=== PATIENT | female | born 1945 | race Caucasian/White ===

== ENCOUNTER 2020-06-14 13:50 | Observation (INO) | payer MEDICARE ==
--- NOTE | 2020-06-14 14:28 | ERPHSYRPT ---
- History of Present Illness Time Seen by Provider: 06/14/20 13:57 Source: patient Exam Limitations: no limitations Patient Subjective Stated Complaint: Pt states "I was told to come here from my Dr. Dr. Montes. She said my hemaglobin was low and I needed a transfusion." Triage Nursing Assessment: Pt presented alert and oriented X 3, skin pwd Pt ambulates with an upright steady gait, able to speak in clear full sentences. Pt in no apparent respiratory distress. pt has no complaints. Physician History: 74 years old female with history of hypertension, hyperlipidemia, diabetes mellitus, tobacco abuse, chronic kidney disease is sent in ER by primary care Dr. Frazier for low hemoglobin found on routine blood work last week. Patient hemoglobin last month was around 7.4-7.6. Patient denies any chest pain palp itations or shortness of breath. Denies any feeling of being fatigued worn out and tired all the time. She denies any epigastric discomfort, taking NSAIDs, any blood thinners but does state Plavix. She denies any dark stool, hematochezia or hematemesis. Denies any fever chills cough or recent being sick. Does not have any history of blood transfusions in the past Allergies/Adverse Reactions: Iodinated Contrast Media Adverse Reaction (Verified 02/13/15 20:43) morphine Adverse Reaction (Verified 02/13/15 20:43) diuretics Adverse Reaction (Uncoded 02/13/15 20:43) Home Medications: Aspirin 81 gm Chew [Baby Aspirin 81 mg Chew] 81 mg PO DAILY 02/13/15 [History] Cilostazol [Pletal] 100 mg PO BID 02/13/15 [History] Clopidogrel Bisulfate 75 mg [PLAVIX 75 MG Tablet] 75 mg PO DAILY 02/13/15 [History] Cyanocobalamin 100 Mcg [Vitamin B-12 100 Mcg] 100 mcg PO DAILY 02/13/15 [History] Felodipine 5 mg [Plendil ER 5 mg] 10 mg PO DAILY 02/13/15 [History] Lisinopril 20 mg [Zestril 20 MG] 40 mg PO DAILY 02/13/15 [History] Lorazepam 1 mg [Ativan 1 MG] 1 mg PO BID 02/13/15 [History] Metoprolol Tartrate 25 mg [Lopressor 25MG Tab] 25 mg PO BID 02/13/15 [History] [place]-3 Fatty Acids [Fish Oil] 300 mg PO DAILY 02/13/15 [History] Omeprazole 20 MG [Prilosec 20 mg] 20 mg PO DAILY 02/13/15 [History] Pravastatin Sodium 40 mg PO DAILY 02/13/15 [History] Vitamin B Complex [Super B Complex] 1 cap PO DAILY 02/13/15 [History] Hx Tetanus, Diphtheria Vaccination/Date Given: No Hx Influenza Vaccination/Date Given: Yes Hx Pneumococcal Vaccination/Date Given: No Immunizations Up to Date: Yes Travel Risk - International Travel Have you traveled outside of the country in past 3 weeks: No - Coronavirus Screening Are you exhibiting any of the following symptoms?: No Close contact with a COVID-19 positive Pt in past 14-21 Days: No - Review of Systems Constitutional: No Symptoms Eyes: No Symptoms Ears, Nose, & Throat: No Symptoms Respiratory: No Symptoms Cardiac: No Symptoms Abdominal/Gastrointestinal: No Symptoms Genitourinary Symptoms: No Symptoms Musculoskeletal: No Symptoms Skin: No Symptoms Neurological: No Symptoms Psychological: No Symptoms Endocrine: No Symptoms Hematologic/Lymphatic: No Symptoms Immunological/Allergic: No Symptoms - Past Medical History Pertinent Past Medical History: Yes Neurological History: No Pertinent History ENT History: No Pertinent History Cardiac History: Congestive Heart Failure, Coronary Artery Disease, High Cholesterol, Hypertension, Myocardial Infarction ([place]), Peripheral Vascular Disease, Other Respiratory History: No Pertinent History Endocrine Medical History: No Pertinent History Musculoskeletal History: No Pertinent History GI Medical History: No Pertinent History History: Other Psycho-Social History: Depression Female Reproductive Disorders: No Pertinent History Other Medical History: 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 - Social History Smoking Status: Current every day smoker How long have you smoked: years Exposure to second hand smoke: Yes Drug Use: none Patient Lives Alone: No - Female History Hx Now: No - Nursing Vital Signs Nursing Vital Signs: Initial Vital Signs Temperature 98.2 F 06/14/20 13:57 Pulse Rate 69 06/14/20 13:57 Respiratory Rate 20 06/14/20 13:57 Blood Pressure 150/63 06/14/20 13:57 O2 Sat by Pulse Oximetry 97 06/14/20 13:57 Pain Scale Pain Intensity 0 - Physical Exam General Appearance: no apparent distress, alert Eye Exam: PERRL/EOMI, other (Pale conjunctiva bilaterally) Ears, Nose, Throat Exam: normal ENT inspection, pharynx normal Neck Exam: normal inspection, non-tender, supple, full range of motion Respiratory Exam: normal breath sounds, lungs clear Cardiovascular Exam: regular rate/rhythm, normal heart sounds Gastrointestinal/Abdomen Exam: soft, normal bowel sounds, No tenderness Back Exam: normal inspection, normal range of motion Extremity Exam: normal inspection, normal range of motion, pelvis stable Neurologic Exam: alert, oriented x 3, cooperative, mental health social worker II-XII nml as tested Skin Exam: normal color SpO2 Interpretation: normal SpO2: 97 O2 Delivery: Room Air - Course Nursing assessment & vital signs reviewed: Yes Ordered Tests: Active Orders 24 hr Category Date Time Status IV Insertion STAT Care 06/14/20 14:23 Active CHEST 1 VIEW (PORTABLE) Stat Exams 06/14/20 14:23 Completed CBC W DIFF Stat Lab 06/14/20 15:25 Completed CMP Stat Lab 06/14/20 15:25 Completed FECAL OCCULT BLOOD - SCREENING Stat Lab 06/14/20 14:23 Ordered Manual Differential NC Stat Lab 06/14/20 15:25 Completed PROTIME WITH INR Stat Lab 06/14/20 15:25 Results PTT Stat Lab 06/14/20 15:25 Results UA W/RFX UR CULTURE Stat Lab 06/14/20 14:23 Ordered Transfer Order Routine Transfer 06/14/20 Ordered Medication Summary Generic Name Dose Route Start Last Admin Trade Name Freq PRN Reason Stop Dose Admin Pantoprazole Sodium 80 mg/ 500 mls @ 50 mls/hr 06/14/20 16:30 Sodium Chloride IV 07/14/20 16:29 .Q10H SANTANA Discontinued Medications Generic Name Dose Route Start Last Admin Trade Name Freq PRN Reason Stop Dose Admin Pantoprazole Sodium 40 mg 06/14/20 16:30 Protonix 40 Mg Iv IV 06/14/20 16:31 STAT ONE Lab/Rad Data: Laboratory Result Diagrams 06/14/20 15:25 06/14/20 15:25 Laboratory Results 06/14/20 06/14/20 06/14/20 Range/Units 15:25 15:25 15:25 WBC 6.9 (4.0-10.5) K/mm3 RBC 3.11 L (4.1-5.4) M/mm3 Hgb 7.0 L (12.0-16.0) gm/dl Hct 24.5 L (35-47) % MCV 78.8 (78-100) fl MCH 22.5 L (26-32) pg MCHC 28.6 L (32-36) g/dl RDW 20.3 H (11.5-14.0) % Plt Count 317 (150-450) K/mm3 MPV 8.3 (7.5-11.0) fl PT 11.9 (9.95-12.35) SECONDS INR 1.05 (0.8-3.0) APTT Pending Sodium 136 L (137-145) mmol/L Potassium 3.8 (3.5-5.1) mmol/L Chloride 106 (98-107) mmol/L Carbon Dioxide 26 (22-30) mmol/L Anion Gap 7.5 (5-15) MEQ/L BUN 16 (7-17) mg/dL Creatinine 1.14 H (0.52-1.04) mg/dL Estimated GFR 49.7 ML/MIN Glucose 164 H (74-106) mg/dL Calcium 8.5 (8.4-10.2) mg/dL Total Bilirubin 0.20 (0.2-1.3) mg/dL AST 15 (14-36) U/L ALT 8 (0-35) U/L Alkaline Phosphatase 66 (38-126) U/L Serum Total Protein 5.6 L (6.3-8.2) g/dL Albumin 3.1 L (3.5-5.0) g/dL - Progress Progress: unchanged Progress Note: 06/14/20 16:31 74 years old is evaluated for anemia which was found out on routine work-up at the primary care. Patient hemoglobin is gradually declining and today is 7.0. Patient denies any hematochezia/melena/hematemesis/vaginal bleeding/nosebleeding and no symptoms of anemia. Although patient looks pale. She is not in any distress. Not tachypneic or tachycardic. EKG did not show any acute ischemic changes. Chest x-ray negative. I have discussed with patient about risk and benefits of transfusion and she agrees with transfusion of 2 units. We will give 20 mg Lasix in between 2 units. She is also started on Protonix. Stool occult is pending. Patient needs further work-up for anemia to find out at source. Discussed with Dr. Recinos and patient is accepted for admission. Discussed with .: Nora Will see patient in: hospital (observation) Counseled pt/family regarding: lab results, diagnosis, need for follow-up, rad results - Departure Departure Disposition: Observation Clinical Impression: Acute anemia Condition: Stable Critical Care Time: No Referrals: BARBER FRAZIER [Primary Care Provider] -
--- NOTE | 2020-06-14 14:42 | XRAY ---
Indication: Anemia. Comparison: February 13, 2015. Portable chest remains clear again with tiny left midlung calcified granuloma. Heart is not enlarged for AP portable technique. Bony thorax intact again with mild osteopenia and degenerative changes. Impression: Continued nonacute chest with chronic features.
[2020-06-14 15:32] LABS: Hematocrit 24.5 % (35-47); Mean Cell Volume 78.8 fl (78-100); Mean Corpuscular Hemoglobin 22.5 pg (26-32); Mean Corpuscular Hgb Concent. 28.6 g/dl (32-36); Mean Platelet Volume 8.3 fl (7.5-11.0); Platelet Count 317 K/mm3 (150-450); Red Blood Count 3.11 M/mm3 (4.1-5.4); Red Cell Distribution Width 20.3 % (11.5-14.0); White Blood Count 6.9 K/mm3 (4.0-10.5)
[2020-06-14 15:39] LABS: INR 1.05 (0.8-3.0); PROTIME 11.9 SECONDS (9.95-12.35)
[2020-06-14 15:44] LABS: ALBUMIN 3.1 g/dL (3.5-5.0); ANION GAP 7.5 MEQ/L (5-15); BILIRUBIN,TOTAL 0.2 mg/dL (0.2-1.3); Calcium 8.5 mg/dL (8.4-10.2); Creatinine 1 1.14 mg/dL (0.52-1.04); EST GLOMERULAR FILTRATION RATE 49.7 ML/MIN; Potassium 3.8 mmol/L (3.5-5.1); Total Protein 5.6 g/dL (6.3-8.2)
[2020-06-14] MEDS ORDERED: PROTONIX 40 MG IV*** 80 MG in Sodium Chloride 0.9% 500 ML 500 ML IV SCH (16:30)
[2020-06-14] MEDS ORDERED: PROTONIX 40 MG IV IV ONE ×2 (16:30→19:26)
[2020-06-14 16:40] LABS: ABO TYPING B
[2020-06-14 16:41] LABS: Antibody Screen NEGATIVE (NEGATIVE); RH TYPING POSITIVE
[2020-06-14 16:43] LABS: CROSS MATCH (PRBC) COMPATIBLE (COMPATIBLE)
[2020-06-14 17:03] LABS: Basophil 1 % (0.0-1.0); Hypochromia 2+; Lymphocytes 14 % (24-44); Microcytosis 1+; Monocyte 8 % (0.0-12.0); Neutrophils 77 % (36.0-66.0); Platelet Estimate NORMAL (NORMAL); Polychromasia 1+; Total Cells Counted 100
[2020-06-14] MEDS ORDERED: Sodium Chloride 0.9% 1000 ML 1,000 ML ONE (17:12)
[2020-06-14 17:17] LABS: PTT 22.1 SECONDS (25.3-37.0)
[2020-06-14] MEDS ORDERED: Zofran 4 MG/2 ML VIAL IV PRN (19:55)
[2020-06-14] MEDS ORDERED: HUMALOG SQ PRN (19:55)
[2020-06-14] MEDS ORDERED: TYLENOL 325 MG PO PRN (19:55)
[2020-06-14 20:35] LABS: Appearance SLIGHTLY CLOUDY (CLEAR); Bilirubin NEGATIVE (NEGATIVE); Blood NEGATIVE Ery/ul (0-5); Epithelial Cells FEW /HPF (FEW); Glucose NEGATIVE (NEGATIVE); Ketones NEGATIVE (NEGATIVE); Leukocyte Esterase NEGATIVE (NEGATIVE); Mucus SLIGHT /HPF (NEGATIVE); Nitrite NEGATIVE (NEGATIVE); Protein,Urine Dip NEGATIVE (Negative); Specific Gravity 1.008 (1.005-1.025); Urobilinogen NEGATIVE mg/dL (0-1)
[2020-06-14] MEDS ORDERED: Ativan 1 MG PO SCH (22:00)
[2020-06-14] MEDS ORDERED: Lopressor 25MG Tab PO SCH (22:00)
[2020-06-15] MEDS ORDERED: PROTONIX 40 MG IV*** 80 MG in Sodium Chloride 0.9% 500 ML 500 ML IV SCH ×2
[2020-06-15] MEDS ORDERED: PROTONIX 40 MG IV IV ONE (01:33)
[2020-06-15] MEDS ORDERED: Sodium Chloride 0.9% 500 ML 500 ML IV ONE (01:33)
[2020-06-15 01:37] LABS: Hematocrit 31.9 % (35-47)
[2020-06-15 01:42] LABS: Hemoglobin 9.6 gm/dl (12.0-16.0)
[2020-06-15 04:56] VITALS: O2SAT 96
[2020-06-15 05:47] LABS: Absolute Neutrophil Ct (ANC) 5.22 (1.4-6.9); BASOPHIL % 0.7 % (0.0-0.4); Basophil (Absolute #) 0.05 (0-0.4); Eosinophil % 1.3 % (0.00-5.0); Hematocrit 31.4 % (35-47); Hemoglobin 9.4 gm/dl (12.0-16.0); Lymphocyte (Absolute #) 1.09 (1.0-4.6); Lymphocytes % 14.6 % (24.0-44.0); Mean Cell Volume 82.2 fl (78-100); Mean Corpuscular Hemoglobin 24.6 pg (26-32); Mean Corpuscular Hgb Concent. 29.9 g/dl (32-36); Mean Platelet Volume 8.9 fl (7.5-11.0); Monocytes % 13.4 % (0.0-12.0); Platelet Count 267 K/mm3 (150-450); Red Blood Count 3.82 M/mm3 (4.1-5.4); Red Cell Distribution Width 20.4 % (11.5-14.0); White Blood Count 7.5 K/mm3 (4.0-10.5)
[2020-06-15 06:11] LABS: ALBUMIN 3.4 g/dL (3.5-5.0); ALKALINE PHOSPHATASE 66 U/L (38-126); ANION GAP 7.6 MEQ/L (5-15); BLOOD UREA NITROGEN 14 mg/dL (7-17); CHLORIDE 108 mmol/L (98-107); Calcium 8.5 mg/dL (8.4-10.2); Carbon Dioxide 25 mmol/L (22-30); Creatinine 1 0.88 mg/dL (0.52-1.04); EST GLOMERULAR FILTRATION RATE > 60.0 ML/MIN; Glucose 109 mg/dL (74-106); Potassium 3.9 mmol/L (3.5-5.1); SGOT/AST 18 U/L (14-36); SGPT/ALT 8 U/L (0-35); SODIUM 137 mmol/L (137-145); Total Protein 6.2 g/dL (6.3-8.2)
[2020-06-15 07:37] VITALS: BP 172/81; PULSE 69
== END 2020-06-15 09:40 | disposition home or self-care (01) ==
LOC: ED 13:50 → MED SURG 19:46
PROVIDERS: ADMIT Family Medicine; ATTEND Family Medicine
DX: D64.9 Anemia, unspecified (principal); E78.5 Hyperlipidemia, unspecified; E11.22 Type 2 diabetes mellitus with diabetic chronic kidney disease; I12.9 Hypertensive chronic kidney disease with stage 1 through stage 4 chronic kidney disease, or unspecified chronic kidney disease; N18.9 Chronic kidney disease, unspecified; Z79.899 Other long term (current) drug therapy; Z79.01 Long term (current) use of anticoagulants
CPT/HCPCS: 36000; 36410; 36415; 36430; 71045; 76942; 80053; 81001; 82947; 85014; 85018; 85025; 85610; 85730; 86850; 86900; 86901; 86922; 93268; 94760; 96374; 99285; G0378; P9016; 99100; A9270-GY

== ENCOUNTER 2020-09-11 08:34 | Day surgery (SDC) | payer MEDICARE ==
[2020-09-11] MEDS ORDERED: Lactated Ringers 1,000 ML IV ONE (08:46)
--- NOTE | 2020-09-11 08:59 | HP ---
DATE OF SURGERY: 09/11/2020 HISTORY OF PRESENT ILLNESS: The patient is a 75 year-old who had anemia recently and has prior history of right colectomy in the past. No bloody stools. No pain. No change in bowel movements. Family history negative for colon cancer or stomach cancer. With anemia the patient is in need for upper and lower endoscopy to rule out upper/lower GI source. PAST MEDICAL HISTORY: Breast cancer, hypertension, congestive heart failure in the past and some diabetes. PAST SURGICAL HISTORY: Mastectomy in the past. 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 MEDICATIONS: Amlodipine, Banophen, calcium, cilostazol, Clopidogrel, felodipine, glimepiride, lisinopril, lorazepam, metoprolol. She had been on prednisone in the past and Simvastatin. ALLERGIES: MORPHINE. IODINATED CONTRAST. FAMILY HISTORY: As noted above. Negative for colon cancer. SOCIAL HISTORY: No smoking or alcohol abuse. REVIEW OF SYSTEMS: Fourteen systems reviewed. No chest pain or palpitations. Other systems negative or noncontributory as above and per preadmission questionnaire. PHYSICAL EXAMINATION: GENERAL: No acute distress. HEENT: Sclerae nonicteric. NECK: No JVD. CHEST: Equal excursion, nonlabored breathing. CVS: Regular rate and rhythm. ABDOMEN: Soft. No peritoneal signs. EXTREMITIES: No significant edema. No cyanosis. NEURO: Alert, oriented, moving extremities symmetrically. RECTAL: Deferred timed to endoscopy exam. PSYCH: Appropriate mood and affect. IMPRESSION: Anemia of unclear etiology. The patient has a prior history of some appendicele carcinoid and had right colectomy. She has had breast cancer in the past. She is in need of upper and lower endoscopy to rule out upper/lower GI source of her anemia. Risks and benefits are explained in detail including but not limited to bleeding or infection, risk of bowel injury or perforation possibly requiring open procedure, risk of missed or nondiagnosis or incomplete exam possibly requiring barium enema, other studies or procedures, general risk of anesthesia or sedation, risk of bowel prep, general risk of anesthesia or sedation possible need for barium enema or other studies or procedures possible inability to diagnose etiology of her symptoms. She understands and agreed to the planned procedure, will proceed with outpatient EGD and colonoscopy.
[2020-09-11] MEDS ORDERED: Lactated Ringers 1,000 ML IV SCH (09:00)
[2020-09-11 09:15] VITALS: O2SAT 94
[2020-09-11] MEDS ORDERED: DIPRIVAN 200 MG/20 ML IV ONE (10:17)
[2020-09-11] MEDS ORDERED: Xylocaine-Mpf 2% 5 Ml Vial ONE (10:17)
[2020-09-11 11:49] VITALS: BP 151/72; PULSE 65
--- NOTE | 2020-09-11 14:46 | OP ---
SURGERY DATE/TIME: 09/11/2020 1020 PREOPERATIVE DIAGNOSIS: Anemia, unclear etiology. POSTOPERATIVE DIAGNOSES: 1) Erosive gastritis. 2) Plus or minus short segment distal gastroesophagitis versus normal variation of gastroesophageal junction. 3) Colon and rectal polyps. 4) Diverticulosis. 5) Small internal hemorrhoids. 6) Slight inflammation with ulceration ileal side of ileocolonic anastomosis. PROCEDURES: 1) EGD with cold biopsy of antrum for Helicobacter pylori. 2) Cold biopsy distal esophagus near the gastroesophageal junction. 3) Colonoscopy to terminal ileum. 4) Retrograde ileoscopy. 5) Cold biopsy of the ileal inflammation area. 6) Hot biopsy removal of small transverse colon polyp. 7) Hot biopsy removal of small sigmoid colon polyp. 8) Hot biopsy removal of two small rectal polyps. 9) Hot snare polypectomy of additional four small rectal polyps. SURGEON: Dr. Farhan Woodson. ANESTHESIA: MAC. ESTIMATED BLOOD LOSS: Minimal. INDICATIONS: As noted above. Risks and benefits explained in detail and not limited to and consent obtained. DESCRIPTION OF PROCEDURE AND FINDINGS: The patient is taken to the operating room. MAC anesthesia introduced. After official time out and no disagreement with planned procedure, bite block positioned. Video gastroscope easily passed down the esophagus through the patent pylorus to the junction to the junction of second and third portion of the duodenum. Duodenum grossly unremarkable. No signs of any obvious ulcers or lesions in the proximal duodenum in the third, second and first portion. The scope pulled back into the antrum. She had evidence of erosive gastritis. She may have had some anemia from the erosions. There were no signs of any large ulcer. No signs of any large masses. Cold biopsy taken for Helicobacter pylori. Good hemostasis noted. On retroflex the gastroesophageal junction snug against the scope. The scope is straightened. Again, no signs of any large masses or ulcers just erosive gastritis. Scope pulled back to gastroesophageal junction and was about 38 cm. There appeared to be a short segment of a little mild inflammation possible distal gastroesophagitis versus normal variation of the gastroesophageal junction. Cold biopsy taken at esophageal site. Good hemostasis noted. The remainder of the esophagus was grossly unremarkable. No signs of any obvious mucosal lesions. The scope is withdrawn. The patient tolerated this part of the procedure well. Attention was then turned to colonoscopy. Digital rectal exam did not reveal any rectal masses. She did have some small internal hemorrhoids. Video colonoscope inserted and passed up through the tortuous sigmoid, descending, transverse colon around to the ileum, ileocolonic anastomosis from the patient's prior right colectomy. Retrograde ileoscopy performed. The more proximal ileum was grossly unremarkable. Right at the anastomotic site had a little bit of inflammation and some superficial erosions. There were no signs of any active bleeding. Cold biopsy taken for further evaluation. Good hemostasis noted. The scope was slowly and carefully withdrawn over the next nine minutes. Polyp in the transverse colon removed with small early polyp versus hyperplastic lesion with hot biopsy forceps and brief bursts of cautery. This again was repeated in the sigmoid colon. Small polyp removed with hot biopsy forceps with brief bursts of cautery. She did have some mild diverticulosis in the left colon. Overall her prep is fair. Scope pulled back to the rectum where she had 7 or 8 small polyps, 3 or 4 removed with hot biopsy forceps with brief bursts of cautery. Good hemostasis noted. Another 4 were removed with hot snare polypectomy with brief bursts of cautery. Otherwise, she had some small internal hemorrhoids. There were no signs of any large masses or obstructing lesions. Again, she had some mild diverticulosis in the left colon. ASA Class III. Her prep was fair. Withdrawal time is around 9 minutes or so. The patient tolerated the procedure well. There were no immediate complications. Findings were discussed with the family out in the waiting area.
== END 2020-09-11 11:40 | disposition home or self-care (01) ==
LOC: SDC 08:34
PROVIDERS: ATTEND Surgery
DX: K29.70 Gastritis, unspecified, without bleeding (principal); D64.9 Anemia, unspecified; Z85.3 Personal history of malignant neoplasm of breast; K57.30 Diverticulosis of large intestine without perforation or abscess without bleeding; K64.8 Other hemorrhoids; D12.8 Benign neoplasm of rectum; D12.3 Benign neoplasm of transverse colon; I10 Essential (primary) hypertension; E11.9 Type 2 diabetes mellitus without complications; Z79.899 Other long term (current) drug therapy
CPT/HCPCS: 82947; 99100; J2704

== ENCOUNTER 2021-06-06 08:24 | Day surgery (SDC) | payer MEDICARE ==
[2021-06-06] MEDS ORDERED: Depo-Medrol 40 MG/ML IM ONE (08:25)
[2021-06-06] MEDS ORDERED: Sodium Chloride 0.9% 10 ML FLUSH Syringe IJ ONE (08:25)
[2021-06-06] MEDS ORDERED: DIPRIVAN 200 MG/20 ML IV ONE (09:45)
[2021-06-06] MEDS ORDERED: Lactated Ringers 1,000 ML IV ONE (10:11)
--- NOTE | 2021-06-06 10:36 | XRAY ---
Indication: Right L4-S1 S1 transforaminal DONATO. Intraoperative fluoroscopy provided for 35 seconds. 4 digital spot image submitted for interpretation demonstrate posterior needle tips projecting over the expected right L4 and L5 nerve roots. Small amount of contrast injected for needle tip placement. Correlate with intraoperative findings/report. Incidental right common iliac stent graft.
--- NOTE | 2021-06-06 10:39 | XRAY ---
35 seconds fluoroscopy time in surgery for right L4-S1 transforaminal DONATO.
== END 2021-06-06 10:10 | disposition home or self-care (01) ==
LOC: SDC-PAIN 08:24
PROVIDERS: ATTEND Psychiatry & Neurology Pain Medicine
DX: M54.16 Radiculopathy, lumbar region (principal); E11.9 Type 2 diabetes mellitus without complications; I10 Essential (primary) hypertension; Z79.899 Other long term (current) drug therapy
CPT/HCPCS: 64483; 64484; 72100; 77003; 82947; J1030; J2704; Q9966

== ENCOUNTER 2021-12-06 13:52 | Emergency (ER) | payer MEDICARE ==
--- NOTE | 2021-12-06 14:27 | ERPHSYRPT ---
- History of Present Illness Source: patient Exam Limitations: no limitations Patient Subjective Stated Complaint: PT states "I fell off the porch onto the concrete and hurt my right arm. It hurts from the wrist up to the shoulder." Triage Nursing Assessment: Pt presented alert and oriented X 3, skin pwd Pt ambulates with an upright steady gait, able to speak in clear full sentences pt in no apparent respiratory distress. Pt right arm slightly swollen at elbow, tender, csm x 4 Physician History: 76 yo wf slipped off porch before ER arrival injuring her R shoulder/R elbow/R forearm. Pt denies head injury/LOC/C,T,L-spine pain/hip-pelvic pain/LE pain. Pt is R handed and drove herself to the ER. Occurred: just prior to arrival Reason for Fall: slipped Loss of Consciousness: no loss of consciousness Quality: aching Severity of Pain-Max: moderate Severity of Pain-Current: moderate Modifying Factors: Improves With: movement Associated Symptoms (Fall): extremity injury, No abdominal pain, No back pain, No confusion, No chest pain, No dizziness, No headache, No lightheadedness, No muscle spasms, No nausea, No neck pain, No ringing in ears, No seizures, No shortness of breath, No slurred speech, No trouble walking, No vomiting, No vision changes Allergies/Adverse Reactions: Iodinated Contrast Media Adverse Reaction (Verified 09/11/20 09:00) nausea, vomiting morphine Adverse Reaction (Verified 09/11/20 09:00) nausea and vomiting diuretics Adverse Reaction (Uncoded 09/11/20 09:00) electolyte imbalance Home Medications: Cilostazol [Pletal] 100 mg PO BID 02/13/15 [History] Felodipine 5 mg [Plendil ER 5 mg] 10 mg PO DAILY 02/13/15 [History] Lisinopril 20 mg [Zestril 20 MG] 40 mg PO DAILY 02/13/15 [History] Lorazepam 1 mg [Ativan 1 MG] 1 mg PO BID 02/13/15 [History] Metoprolol Tartrate 25 mg [Lopressor 25MG Tab] 50 mg PO BID 02/13/15 [History] [place]-3 Fatty Acids [Fish Oil] 300 mg PO DAILY 02/13/15 [History] Vitamin B Complex [Super B Complex] 1 cap PO DAILY 02/13/15 [History] Amlodipine Besylate 5 mg [Norvasc 5 mg] 5 mg PO DAILY 08/30/20 [History] Ascorbic Acid [Vitamin C] 1,000 mg PO DAILY 08/30/20 [History] Calcium Phosphate Trib/Vit D3 [Calcium + Vitamin D3 Gummies] 1 each PO DAILY 08/30/20 [History] Fluoxetine HCl 20 mg [Prozac 20 MG] 20 mg PO DAILY 08/30/20 [History] Glimepiride [Amaryl] 1 mg PO DAILY 08/30/20 [History] Simvastatin 40 mg PO DAILY 08/30/20 [History] Hx Tetanus, Diphtheria Vaccination/Date Given: No Hx Influenza Vaccination/Date Given: Yes Hx Pneumococcal Vaccination/Date Given: No Immunizations Up to Date: Yes Travel Risk - International Travel Have you traveled outside of the country in past 3 weeks: No - Coronavirus Screening Are you exhibiting any of the following symptoms?: No Close contact with a COVID-19 positive Pt in past 14-21 Days: No - Vaccine Status Have you recieved a Covid-19 vaccination: Yes [employer]: Moderna - Vaccination Dates Date of 2cond Vaccination (if applicable): 2020 - Review of Systems Constitutional: No Symptoms Eyes: No Symptoms Ears, Nose, & Throat: No Symptoms Respiratory: No Symptoms Cardiac: No Symptoms Abdominal/Gastrointestinal: No Symptoms Genitourinary Symptoms: No Symptoms Musculoskeletal: No Symptoms, Arthralgias Skin: No Symptoms Neurological: No Symptoms Psychological: No Symptoms Endocrine: No Symptoms Hematologic/Lymphatic: No Symptoms Immunological/Allergic: No Symptoms - Past Medical History Pertinent Past Medical History: Yes Neurological History: No Pertinent History ENT History: No Pertinent History Cardiac History: Congestive Heart Failure, Coronary Artery Disease, High Cholesterol, Hypertension, Myocardial Infarction ([place]), Peripheral Vascular Disease, Other Respiratory History: No Pertinent History Endocrine Medical History: No Pertinent History Musculoskeletal History: No Pertinent History GI Medical History: No Pertinent History History: Other Psycho-Social History: Depression Female Reproductive Disorders: No Pertinent History Other Medical History: 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 - Social History Smoking Status: Current every day smoker How long have you smoked: years Exposure to second hand smoke: Yes Drug Use: none Patient Lives Alone: No Significant Family History: no pertinent family hx - Nursing Vital Signs Nursing Vital Signs: Initial Vital Signs Temperature 98.0 F 12/06/21 13:57 Pulse Rate 62 12/06/21 13:57 Respiratory Rate 22 12/06/21 13:57 Blood Pressure 148/66 12/06/21 13:57 O2 Sat by Pulse Oximetry 97 12/06/21 13:57 Pain Scale Pain Intensity 6 Hypertensive - Phyllis Coma Score Best Eye Response (Phyllis): (4) open spontaneously Best Verbal Response (Phyllis): (5) oriented Best Motor Response ([place]): (6) obeys commands [place] Total: 15 - Physical Exam General Appearance: no apparent distress Head Injury: no evidence of injury Eye Exam: PERRL/EOMI, eyes nml inspection ENT Exam: airway nml, No evidence of ENT injury, No dental injury, No clear fluid (ears), No clear fluid (nose), No midface instability, No hemotympanum Neck Exam: supple, trachea midline, full range of motion (C-spine NTTP) Respiratory/Chest Exam: normal breath sounds, No chest tenderness, No respiratory distress Cardiovascular Exam: normal heart sounds, regular rate/rhythm, normal peripheral pulses, No murmur, No edema Gastrointestinal Exam: soft, normal bowel sounds, No tenderness Back Exam: normal inspection (No T or L-spine TTP) Extremity Exam: capillary refill <3 sec, pelvis stable, bony point tenderness (Mod R shoulder-humerus TTP/Mod R olecranon TTP/Mod R forearm TTP/R wrist NTTP/Good radial pulse, distal sensation, and capillary return) Peripheral Pulses: carotid (R): 2+, carotid (L): 2+ Neurologic Exam: alert, oriented x 3, cooperative, singer and unloader II-XII nml as tested, normal mood/affect, nml cerebellar function, nml station & gait, sensation nml Skin Exam: normal color, warm, dry SpO2 Interpretation: normal SpO2: 97 O2 Delivery: Room Air - Course Nursing assessment & vital signs reviewed: Yes - Radiology Exams Shoulder X-ray Interpretation: Discussed w/ radiologist (R shoulder neg for fx/dislocation per rad) Elbow X-ray Interpretation: Discussed w/ radiologist (R olecranon neg per Rad) Forearm X-ray Interpretation: Discussed w/ radiologist (R forearm neg per Rad) Ordered Tests: Active Orders 24 hr Category Date Time Status ELBOW (MINIMUM 3 VIEWS) Stat Exams 12/06/21 14:54 Completed FOREARM Stat Exams 12/06/21 14:54 Completed SHOULDER Stat Exams 12/06/21 14:53 Completed Medication Summary Discontinued Medications Generic Name Dose Route Start Last Admin Trade Name Steve PRN Reason Stop Dose Admin Ketorolac Tromethamine 15 mg 12/06/21 15:43 12/06/21 15:46 Ketorolac Tromethamine 30 Mg/Ml Inj IM 12/06/21 15:44 15 mg STAT ONE Administration Ketorolac Tromethamine Confirm 12/06/21 15:45 Ketorolac Tromethamine 30 Mg/Ml Inj Administered 12/06/21 15:46 Dose 30 mg .ROUTE .STK-MED ONE - Progress Progress: improved Progress Note: 12/06/21 15:45 15mg IM Toradol Counseled pt/family regarding: diagnosis, need for follow-up, rad results - Departure Departure Disposition: Home Clinical Impression: Contusion of shoulder, right, Contusion of elbow, right, Contusion of forearm, right Condition: Stable Critical Care Time: No Referrals: BARBER FRAZIER [Primary Care Provider] - Follow up/PCP as directed Instructions: Contusion (DC), Preventing Falls in Older Adults Additional Instructions: Ice for 12-24 hours Motrin/tylenol for pain Follow up with your family MD for continued
[2021-12-06 15:08] VITALS: BP 83/66
[2021-12-06 15:25] VITALS: PULSE 65
--- NOTE | 2021-12-06 15:34 | XRAY ---
Exam: Two-view right forearm radiograph series. Comparison: [None.] Indication: 76-year-old female who fell today on right side; very limited range of motion. Findings: AP and lateral radiographs are submitted for interpretation. The bones are mildly demineralized. I see no acute fracture of the radius or ulna. There is mild hypertrophic change of the radial head and ulnar styloid process. The radiocarpal joint space appears unremarkable. Mild osteoarthritis of the joint space between the carpal scaphoid bone and multangular bones and moderate osteoarthritis of the carpal-first metacarpal joint space are seen. Impression: 1. No acute fracture of the right radius or ulna is seen. 2. Some osteoarthritic changes are seen within the radial aspect of the carpus of the right wrist, as discussed above.
--- NOTE | 2021-12-06 15:38 | XRAY ---
Exam: Two-view right elbow radiograph series Comparison: [None.] Indication: 76-year-old female fell today on right side; very limited range of motion. Findings: The ultrasound technologist sonographer states the patient was unable to obtain a conventional AP view of the right elbow. Instead, a cross table image and lateral image of the right elbow were obtained. I see no acute fracture, dislocation, or joint effusion. There is minimal soft tissue calcification anterior to the proximal right forearm. This might be vascular. No other definite bone abnormality is seen. Impression: 1. Limited right elbow two-view study revealing no definite fracture, dislocation, or joint effusion.
[2021-12-06] MEDS ORDERED: TORAdol 30 mg Injection IM ONE (15:43)
--- NOTE | 2021-12-06 15:43 | XRAY ---
Exam: 3 view right shoulder series from 12/06/2021. Comparison: [None.] Indication: 76-year-old female fell today on right side, very limited range of motion. Findings: AP internal rotation, AP external rotation, and Y views of the right shoulder were obtained. The bones are demineralized. I see no acute right shoulder fracture or dislocation. The glenohumeral joint space is not seen in optimal profile, as a Grashey view or axillary view was not obtained. There is moderate to marked narrowing of the right acromioclavicular joint with some marginal spurring indicating osteoarthritis. On the AP external rotation view, there appears to be a moderate sized spur along the inferior surface of the acromion. Impression: 1. No acute right shoulder fracture or dislocation is seen. 2. 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 I also see a moderate sized spur along the undersurface of the acromion on the AP external rotation view. 3. Bone demineralization.
[2021-12-06] MEDS ORDERED: TORAdol 30 mg Injection ONE (15:45)
[2021-12-06 15:49] VITALS: O2SAT 97
== END 2021-12-06 16:01 | disposition home or self-care (01) ==
LOC: ED 13:52
DX: S40.011A Contusion of right shoulder, initial encounter (principal); S50.11XA Contusion of right forearm, initial encounter; S50.01XA Contusion of right elbow, initial encounter; W17.89XA Other fall from one level to another, initial encounter; M79.601 Pain in right arm; E78.5 Hyperlipidemia, unspecified; I11.0 Hypertensive heart disease with heart failure; I50.9 Heart failure, unspecified; Z72.0 Tobacco use; Z79.899 Other long term (current) drug therapy
CPT/HCPCS: 73030; 73080; 73090; 96372; 99283; J1885

== ENCOUNTER 2022-11-06 10:05 | Day surgery (SDC) | payer MEDICARE ==
[2022-11-06] MEDS ORDERED: Decadron 4 MG INJ IV ONE (10:06)
[2022-11-06] MEDS ORDERED: Depo-Medrol 40 MG/ML IM ONE (10:06)
[2022-11-06] MEDS ORDERED: LIDOCAINE HCL 1% 50 MG/5 ML VL PF IJ ONE (10:06)
[2022-11-06] MEDS ORDERED: BUPIVACAINE 0.5% VIAL IJ ONE (10:06)
--- NOTE | 2022-11-06 11:50 | XRAY ---
Indication: Bilateral greater trochanter bursa and bilateral piriformis injection. Intraoperative fluoroscopy was provided for 37 seconds. 4 digital spot image obtained prone submitted for interpretation demonstrates posterior needle tip projecting over the expected left and right piriformis muscles. Additional needle tip lateral to the left and right greater trochanters. Small amount of contrast injected for all needle tip placement. Correlate with intraoperative findings/report.
--- NOTE | 2022-11-06 12:08 | XRAY ---
37 seconds of fluoroscopy was used in surgery for a bilateral greater trochanteric bursa and bilateral piriformis injection.
== END 2022-11-06 11:50 | disposition home or self-care (01) ==
LOC: SDC-PAIN 10:05
PROVIDERS: ATTEND Psychiatry & Neurology Pain Medicine
DX: M70.62 Trochanteric bursitis, left hip (principal); M70.61 Trochanteric bursitis, right hip; M79.18 Myalgia, other site; E11.9 Type 2 diabetes mellitus without complications; Z79.899 Other long term (current) drug therapy
CPT/HCPCS: 20610; 73521; 77002; 82947; J1030; J1100; J2001; Q9966

== ENCOUNTER 2022-12-18 08:14 | Day surgery (SDC) | payer MEDICARE | END 2022-12-18 08:55 | disposition home or self-care (01) | LOC: SDC-PAIN 08:14 | PROVIDERS: ATTEND Psychiatry & Neurology Pain Medicine | DX: Z53.8 Procedure and treatment not carried out for other reasons (principal); E11.9 Type 2 diabetes mellitus without complications | CPT/HCPCS: 82947 ==

== ENCOUNTER 2023-01-08 09:13 | Day surgery (SDC) | payer MEDICARE ==
[2023-01-08] MEDS ORDERED: Sodium Chloride 0.9(Preservative Free) 10 ML IJ ONE (09:14)
[2023-01-08] MEDS ORDERED: Depo-Medrol 40 MG/ML IM ONE (09:14)
[2023-01-08] MEDS ORDERED: DIPRIVAN 200 MG/20 ML IV ONE (11:29)
[2023-01-08] MEDS ORDERED: Xylocaine-Mpf 2% 5 Ml Vial ONE (11:33)
--- NOTE | 2023-01-08 13:42 | XRAY ---
Indication: Caudal DONATO. Intraoperative fluoroscopy provided for 36 seconds. 4 digital spot images submitted for interpretation demonstrates caudal needle tip projecting mid sacrum. Small amount of contrast injected for needle tip placement. Correlate with intraoperative findings/report.
[2023-01-08] MEDS ORDERED: Lactated Ringers 1,000 ML IV ONE (16:45)
--- NOTE | 2023-01-08 20:12 | XRAY ---
36 seconds of fluoroscopy was used in surgery for a caudal DONATO.
== END 2023-01-08 12:07 | disposition home or self-care (01) ==
LOC: SDC-PAIN 09:13
PROVIDERS: ATTEND Psychiatry & Neurology Pain Medicine
DX: M54.16 Radiculopathy, lumbar region (principal); E11.9 Type 2 diabetes mellitus without complications; Z79.899 Other long term (current) drug therapy
CPT/HCPCS: 62323; 72220; 77003; 82947; J1030; J2704; Q9966

== ENCOUNTER 2023-05-28 08:46 | Day surgery (SDC) | payer MEDICARE ==
[2023-05-28] MEDS ORDERED: Sodium Chloride 0.9(Preservative Free) 10 ML IJ ONE (08:47)
[2023-05-28] MEDS ORDERED: Depo-Medrol 40 MG/ML IM ONE (08:47)
[2023-05-28] MEDS ORDERED: DIPRIVAN 200 MG/20 ML IV ONE (10:04)
[2023-05-28] MEDS ORDERED: BENADRYL 50 MG/ML ONE (10:10)
[2023-05-28] MEDS ORDERED: Lactated Ringers 1,000 ML IV ONE (11:18)
--- NOTE | 2023-05-28 12:17 | XRAY ---
Indication: Caudal DONATO. Intraoperative fluoroscopy provided for 18 seconds. 3 digital spot image submitted for interpretation demonstrates caudal needle tip projecting mid sacrum. Small amount of contrast injected for needle tip placement. Correlate with intraoperative findings/report.
--- NOTE | 2023-05-28 16:56 | XRAY ---
18 seconds of fluoroscopy was used in surgery for a caudal DONATO.
== END 2023-05-28 10:35 | disposition home or self-care (01) ==
LOC: SDC-PAIN 08:46
PROVIDERS: ATTEND Psychiatry & Neurology Pain Medicine
DX: M54.16 Radiculopathy, lumbar region (principal); E11.9 Type 2 diabetes mellitus without complications; Z79.899 Other long term (current) drug therapy
CPT/HCPCS: 62323; 72220; 77003; 82947; J1030; J1200; J2704; Q9966

== ENCOUNTER 2024-06-08 18:18 | Observation (INO) | payer MEDICARE ==
--- NOTE | 2024-06-08 19:12 | ERPHSYRPT ---
- History of Present Illness Time Seen by Provider: 06/08/24 19:11 Source: patient Exam Limitations: no limitations Patient Subjective Stated Complaint: hypoglycemia - pt was found with a blood glucose of 23 Triage Nursing Assessment: Pt brought to the ER by EMS, hypertensive, denies pain, BS at this time is 88, pulses normal, skin n/w/d, pt states that the doctor had told her to stop her lorazepam but she got confused and stopped her diabetic pill and was off of it for about 3 weeks and went back on it 2-3 days ago, reports that her head was dizzy in April and fell 21 times but now she realizes it was her sugar dropping, no difficulty breathing, no chest pain, doesn't appear to be in any distress Physician History: 78yo f presents via EMS for hypoglycemia. EMS reports they were called b/c pt was unresponsive at home, found to have blood glucose of 23. Pt received 2 amps d50 in route to ED. Pt reports she currently feels well, has no acute complaints. Pt reports she recently had her medications changed and was started on 2mg glimeperide increased from 1mg 2wks ago. Pt reports numerous falls since increasing her medication dose, reports feeling poorly overall. Pt denies any recent head trauma, denies any sob or cp, n/v/d. Timing/Duration: today Severity: moderate Associated Symptoms: No nausea, No vomiting, No abdominal pain, No shortness of breath, No diaphoresis, No chest pain, No fever, No headaches, No weakness Allergies/Adverse Reactions: Iodinated Contrast Media Adverse Reaction (Verified 06/08/24 18:44) nausea, vomiting morphine Adverse Reaction (Verified 06/08/24 18:44) nausea and vomiting diuretics Adverse Reaction (Uncoded 06/08/24 18:44) electolyte imbalance Home Medications: Cilostazol [Pletal] 100 mg PO BID 02/13/15 [History] Felodipine 5 mg [Plendil ER 5 mg] 10 mg PO UD 02/13/15 [History] Lisinopril 20 mg [Zestril 20 MG] 10 mg PO DAILY 02/13/15 [History] Lorazepam 1 mg [Ativan 1 MG] 0 mg PO UD 02/13/15 [History] Metoprolol Tartrate 25 mg [Lopressor 25MG Tab] 75 mg PO BID 02/13/15 [History] [place]-3 Fatty Acids [Fish Oil] 300 mg PO DAILY 02/13/15 [History] Vitamin B Complex [Super B Complex] 1 cap PO DAILY 02/13/15 [History] Amlodipine Besylate 5 mg [Norvasc 5 mg] 5 mg PO DAILY 08/30/20 [History] Ascorbic Acid [Vitamin C] 1,000 mg PO DAILY 08/30/20 [History] Fluoxetine HCl 20 mg [Prozac 20 MG] 20 mg PO DAILY 08/30/20 [History] Glimepiride [Amaryl] 2 mg PO DAILY 08/30/20 [History] Simvastatin 40 mg PO DAILY 08/30/20 [History] Hx Tetanus, Diphtheria Vaccination/Date Given: No Hx Influenza Vaccination/Date Given: Yes Hx Pneumococcal Vaccination/Date Given: No Travel Risk - International Travel Have you traveled outside of the country in past 3 weeks: No - Emerging Infectious Disease Are you exhibiting symptoms associated with any current EIDs: No - Review of Systems Constitutional: No Symptoms Respiratory: No Symptoms Cardiac: Syncope, No Chest Pain, No Edema Abdominal/Gastrointestinal: No Symptoms Genitourinary Symptoms: No Symptoms - Past Medical History Pertinent Past Medical History: Yes Neurological History: No Pertinent History ENT History: No Pertinent History Cardiac History: Congestive Heart Failure, Coronary Artery Disease, High Cholesterol, Hypertension, Myocardial Infarction ([place]), Peripheral Vascular Disease, Other Respiratory History: No Pertinent History Endocrine Medical History: Diabetes Type II Musculoskeletal History: No Pertinent History GI Medical History: No Pertinent History History: Other Psycho-Social History: Depression Female Reproductive Disorders: No Pertinent History Other Medical History: 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 Significant Family History: no pertinent family hx - Social History Smoking Status: Current every day smoker How long have you smoked: years Exposure to second hand smoke: Yes Drug Use: none Patient Lives Alone: No - Social Determinants of Health Will the patient participate in the screening: Yes Do you worry about a steady place to live?: No Do you have any problems with any of the following?: No known problems In the past 12 months,have you had to go without utilities?: No Transportation Issues: No Has anyone in your support network made you feel unsafe?: No Have you or anyone in your house had to go without enough: No - Nursing Vital Signs Nursing Vital Signs: Initial Vital Signs Blood Pressure 188/44 06/08/24 18:30 O2 Sat by Pulse Oximetry 98 06/08/24 18:30 Pain Scale Pain Intensity 0 - Physical Exam General Appearance: no apparent distress, alert Respiratory Exam: normal breath sounds, lungs clear, airway intact, No chest tenderness, No respiratory distress Cardiovascular Exam: regular rate/rhythm, normal heart sounds, normal peripheral pulses Gastrointestinal/Abdomen Exam: soft, normal bowel sounds, No tenderness, No dist ention Neurologic Exam: alert, oriented x 3, cooperative, sensation nml, No motor deficits, No sensory deficit, No disoriented, No confusion, No agitation Skin Exam: normal color, warm, dry SpO2 Interpretation: normal SpO2: 98 O2 Delivery: Room Air - Course EKG Interpreted by Me: RATE (67), Sinus Rhythm, Non-specific ST Changes (qtcb 457, peaked t waves v3 v4, not suggestive of acute ischemia) Ordered Tests: Active Orders 24 hr Category Date Time Status EKG-ER Only STAT Care 06/08/24 19:14 Active IV Insertion STAT Care 06/08/24 19:14 Active Blood Sugar [Glucose] Stat Lab 06/08/24 22:25 Completed CBC W DIFF Stat Lab 06/08/24 19:30 Completed CMP Stat Lab 06/08/24 19:30 Completed CULTURE,URINE Stat Lab 06/08/24 19:45 Received POCT GLUCOSE Stat Lab 06/09/24 00:23 Completed POCT GLUCOSE Stat Lab 06/09/24 01:32 Completed POCT GLUCOSE Stat Lab 06/08/24 19:30 Completed POCT GLUCOSE Stat Lab 06/08/24 20:28 Completed POCT GLUCOSE Stat Lab 06/08/24 22:06 Completed POCT GLUCOSE Stat Lab 06/08/24 22:07 Completed POCT GLUCOSE Stat Lab 06/08/24 22:15 Completed POCT GLUCOSE Stat Lab 06/08/24 22:16 Completed POCT GLUCOSE Stat Lab 06/08/24 22:57 Completed POCT GLUCOSE Stat Lab 06/08/24 23:03 Completed POCT GLUCOSE Stat Lab 06/08/24 23:23 Completed UA W/RFX UR CULTURE Stat Lab 06/08/24 19:45 Completed Medication Summary Generic Name Dose Route Start Last Admin Trade Name Freq PRN Reason Stop Dose Admin Dextrose 250 mls @ 10 mls/hr 06/08/24 21:00 06/09/24 01:51 Dextrose 10% 250 Ml IV 07/08/24 20:59 20 mls/hr .Q24H SANTANA Infusion Metoprolol Tartrate 50 mg 06/09/24 00:10 06/09/24 00:12 Metoprolol Tartrate 50 Mg Tablet PO 07/09/24 00:09 50 mg DAILY SANTANA Administration Discontinued Medications Generic Name Dose Route Start Last Admin Trade Name Freq PRN Reason Stop Dose Admin Dextrose 50 ml 06/08/24 22:44 06/08/24 23:06 Dextrose 50%-Water 50 Ml Vial IV 06/08/24 22:45 Not Given ONCE ONE Dextrose Confirm 06/08/24 22:46 Dextrose 50%-Water 50 Ml Abboject Administered 06/08/24 22:47 Dose 50 ml IV .STK-MED ONE Dextrose 50 ml 06/08/24 22:48 06/08/24 22:49 Dextrose 50%-Water 50 Ml Abboject IV 06/08/24 22:49 50 ml STAT ONE Administration Dextrose/Sodium Chloride 1,000 mls @ 75 mls/hr 06/08/24 19:30 06/08/24 19:34 Dextrose 5%-Ns Iv Solution 1000 Ml IV 07/08/24 19:29 75 mls/hr .[id number] SANTANA Administration Dextrose/Sodium Chloride Confirm 06/08/24 19:33 Dextrose 5%-Ns Iv Solution 1000 Ml Administered 06/08/24 19:34 Dose 1,000 mls @ ud IV .STK-MED ONE Metoprolol Tartrate 75 mg 06/09/24 10:00 Metoprolol Tartrate 50 Mg Tablet PO 07/09/24 09:59 DAILY SANTANA Metoprolol Tartrate 25 mg 06/09/24 00:11 06/09/24 00:12 Metoprolol Tartrate 25 Mg Tab PO 06/09/24 00:12 25 mg STAT ONE Administration Metoprolol Tartrate Confirm 06/09/24 00:09 Metoprolol Tartrate 25 Mg Tab Administered 06/09/24 00:10 Dose 25 mg .ROUTE .STK-MED ONE Lab/Rad Data: Laboratory Result Diagrams 06/08/24 19:30 06/08/24 19:30 Laboratory Results 06/09/24 06/09/24 06/08/24 Range/Units 01:32 00:23 23:23 WBC (3.98-10.04) x10^3/uL RBC (3.93-5.22) x10^6/uL Hgb (11.2-15.7) g/dL Hct (34.1-44.9) % MCV (79.4-94.8) fL MCH (25.6-32.2) pg MCHC (32.2-35.5) g/dL RDW (11.7-14.4) % Plt Count (182-369) x10^3/uL MPV (9.4-12.3) fL Gran % (34.0-71.1) % Immature Gran % (Auto) (0.001-0.429) % Nucleat RBC Rel Count (0.00-0.2) % Eos # (Auto) (0.04-0.36) x10^3/uL Immature Gran # (Auto) (0.001-0.031) x10^3u/L Absolute Lymphs (auto) (1.18-3.74) x10^3/uL Absolute Monos (auto) (0.24-0.86) x10^3/uL Absolute Nucleated RBC (0.00-0.012) x10^3u/L Lymphocytes % (19.3-51.7) % Monocytes % (4.7-12.5) % Eosinophils % (0.7-5.8) % Basophils % (0.1-1.2) % Absolute Granulocytes (1.56-6.13) x10^3/uL Basophils # (0.01-0.08) x10^3/uL Sodium (135-145) mmol/L Potassium (3.5-5.1) mmol/L Chloride (98-107) mmol/L Carbon Dioxide (22-30) mmol/L Anion Gap (5-15) MEQ/L BUN (7-17) mg/dL Creatinine (0.52-1.04) mg/dL Estimated GFR ML/MIN Glucose (74-106) mg/dL POC Glucometer 94 167 H 242 H (74 to 106) mg/dL Calcium (8.4-10.2) mg/dL Total Bilirubin (0.2-1.3) mg/dL AST (14-36) U/L ALT (0-35) U/L Alkaline Phosphatase (38-126) U/L Serum Total Protein (6.3-8.2) g/dL Albumin (3.5-5.0) g/dL Urine Color (Yellow) Urine Appearance (Clear) Urine pH (4.6-8.0) Ur Specific [place] (1.005-1.030) Urine Protein (Negative) Urine Glucose (UA) (Negative) mg/dL Urine Ketones (Negative) Urine Blood (Negative) Urine Nitrite (Negative) Urine Bilirubin (Negative) Urine Urobilinogen (0.2) mg/dL Ur Leukocyte Esterase (Negative) U Hyaline Cast (Auto) (0-2) /LPF Urine Microscopic RBC (0-5) /HPF Urine Microscopic WBC (0-5) /HPF Ur Epithelial Cells (None Seen) /HPF Urine Bacteria (None Seen) /HPF Urine Culture Reflexed (NO) Slides for Path Review 06/08/24 06/08/24 06/08/24 Range/Units 23:03 22:57 22:25 WBC (3.98-10.04) x10^3/uL RBC (3.93-5.22) x10^6/uL Hgb (11.2-15.7) g/dL Hct (34.1-44.9) % MCV (79.4-94.8) fL MCH (25.6-32.2) pg MCHC (32.2-35.5) g/dL RDW (11.7-14.4) % Plt Count (182-369) x10^3/uL MPV (9.4-12.3) fL Gran % (34.0-71.1) % Immature Gran % (Auto) (0.001-0.429) % Nucleat RBC Rel Count (0.00-0.2) % Eos # (Auto) (0.04-0.36) x10^3/uL Immature Gran # (Auto) (0.001-0.031) x10^3u/L Absolute Lymphs (auto) (1.18-3.74) x10^3/uL Absolute Monos (auto) (0.24-0.86) x10^3/uL Absolute Nucleated RBC (0.00-0.012) x10^3u/L Lymphocytes % (19.3-51.7) % Monocytes % (4.7-12.5) % Eosinophils % (0.7-5.8) % Basophils % (0.1-1.2) % Absolute Granulocytes (1.56-6.13) x10^3/uL Basophils # (0.01-0.08) x10^3/uL Sodium (135-145) mmol/L Potassium (3.5-5.1) mmol/L Chloride (98-107) mmol/L Carbon Dioxide (22-30) mmol/L Anion Gap (5-15) MEQ/L BUN (7-17) mg/dL Creatinine (0.52-1.04) mg/dL Estimated GFR ML/MIN Glucose 29 L* (74-106) mg/dL POC Glucometer 166 H 196 H (74 to 106) mg/dL Calcium (8.4-10.2) mg/dL Total Bilirubin (0.2-1.3) mg/dL AST (14-36) U/L ALT (0-35) U/L Alkaline Phosphatase (38-126) U/L Serum Total Protein (6.3-8.2) g/dL Albumin (3.5-5.0) g/dL Urine Color (Yellow) Urine Appearance (Clear) Urine pH (4.6-8.0) Ur Specific [place] (1.005-1.030) Urine Protein (Negative) Urine Glucose (UA) (Negative) mg/dL Urine Ketones (Negative) Urine Blood (Negative) Urine Nitrite (Negative) Urine Bilirubin (Negative) Urine Urobilinogen (0.2) mg/dL Ur Leukocyte Esterase (Negative) U Hyaline Cast (Auto) (0-2) /LPF Urine Microscopic RBC (0-5) /HPF Urine Microscopic WBC (0-5) /HPF Ur Epithelial Cells (None Seen) /HPF Urine Bacteria (None Seen) /HPF Urine Culture Reflexed (NO) Slides for Path Review 06/08/24 06/08/24 06/08/24 Range/Units 22:16 22:15 22:07 WBC (3.98-10.04) x10^3/uL RBC (3.93-5.22) x10^6/uL Hgb (11.2-15.7) g/dL Hct (34.1-44.9) % MCV (79.4-94.8) fL MCH (25.6-32.2) pg MCHC (32.2-35.5) g/dL RDW (11.7-14.4) % Plt Count (182-369) x10^3/uL MPV (9.4-12.3) fL Gran % (34.0-71.1) % Immature Gran % (Auto) (0.001-0.429) % Nucleat RBC Rel Count (0.00-0.2) % Eos # (Auto) (0.04-0.36) x10^3/uL Immature Gran # (Auto) (0.001-0.031) x10^3u/L Absolute Lymphs (auto) (1.18-3.74) x10^3/uL Absolute Monos (auto) (0.24-0.86) x10^3/uL Absolute Nucleated RBC (0.00-0.012) x10^3u/L Lymphocytes % (19.3-51.7) % Monocytes % (4.7-12.5) % Eosinophils % (0.7-5.8) % Basophils % (0.1-1.2) % Absolute Granulocytes (1.56-6.13) x10^3/uL Basophils # (0.01-0.08) x10^3/uL Sodium (135-145) mmol/L Potassium (3.5-5.1) mmol/L Chloride (98-107) mmol/L Carbon Dioxide (22-30) mmol/L Anion Gap (5-15) MEQ/L BUN (7-17) mg/dL Creatinine (0.52-1.04) mg/dL Estimated GFR ML/MIN Glucose (74-106) mg/dL POC Glucometer 23 L* 22 L* 26 L* (74 to 106) mg/dL Calcium (8.4-10.2) mg/dL Total Bilirubin (0.2-1.3) mg/dL AST (14-36) U/L ALT (0-35) U/L Alkaline Phosphatase (38-126) U/L Serum Total Protein (6.3-8.2) g/dL Albumin (3.5-5.0) g/dL Urine Color (Yellow) Urine Appearance (Clear) Urine pH (4.6-8.0) Ur Specific [place] (1.005-1.030) Urine Protein (Negative) Urine Glucose (UA) (Negative) mg/dL Urine Ketones (Negative) Urine Blood (Negative) Urine Nitrite (Negative) Urine Bilirubin (Negative) Urine Urobilinogen (0.2) mg/dL Ur Leukocyte Esterase (Negative) U Hyaline Cast (Auto) (0-2) /LPF Urine Microscopic RBC (0-5) /HPF Urine Microscopic WBC (0-5) /HPF Ur Epithelial Cells (None Seen) /HPF Urine Bacteria (None Seen) /HPF Urine Culture Reflexed (NO) Slides for Path Review 06/08/24 06/08/24 06/08/24 Range/Units 22:06 20:28 19:45 WBC (3.98-10.04) x10^3/uL RBC (3.93-5.22) x10^6/uL Hgb (11.2-15.7) g/dL Hct (34.1-44.9) % MCV (79.4-94.8) fL MCH (25.6-32.2) pg MCHC (32.2-35.5) g/dL RDW (11.7-14.4) % Plt Count (182-369) x10^3/uL MPV (9.4-12.3) fL Gran % (34.0-71.1) % Immature Gran % (Auto) (0.001-0.429) % Nucleat RBC Rel Count (0.00-0.2) % Eos # (Auto) (0.04-0.36) x10^3/uL Immature Gran # (Auto) (0.001-0.031) x10^3u/L Absolute Lymphs (auto) (1.18-3.74) x10^3/uL Absolute Monos (auto) (0.24-0.86) x10^3/uL Absolute Nucleated RBC (0.00-0.012) x10^3u/L Lymphocytes % (19.3-51.7) % Monocytes % (4.7-12.5) % Eosinophils % (0.7-5.8) % Basophils % (0.1-1.2) % Absolute Granulocytes (1.56-6.13) x10^3/uL Basophils # (0.01-0.08) x10^3/uL Sodium (135-145) mmol/L Potassium (3.5-5.1) mmol/L Chloride (98-107) mmol/L Carbon Dioxide (22-30) mmol/L Anion Gap (5-15) MEQ/L BUN (7-17) mg/dL Creatinine (0.52-1.04) mg/dL Estimated GFR ML/MIN Glucose (74-106) mg/dL POC Glucometer 25 L* 65 L (74 to 106) mg/dL Calcium (8.4-10.2) mg/dL Total Bilirubin (0.2-1.3) mg/dL AST (14-36) U/L ALT (0-35) U/L Alkaline Phosphatase (38-126) U/L Serum Total Protein (6.3-8.2) g/dL Albumin (3.5-5.0) g/dL Urine Color Yellow (Yellow) Urine Appearance Clear (Clear) Urine pH 5.0 (4.6-8.0) Ur Specific [place] 1.010 (1.005-1.030) Urine Protein 30 (Negative) Urine Glucose (UA) Negative (Negative) mg/dL Urine Ketones Negative (Negative) Urine Blood Negative (Negative) Urine Nitrite Negative (Negative) Urine Bilirubin Negative (Negative) Urine Urobilinogen 0.2 (0.2) mg/dL Ur Leukocyte Esterase Negative (Negative) U Hyaline Cast (Auto) 3-5 A (0-2) /LPF Urine Microscopic RBC 0-2 (0-5) /HPF Urine Microscopic WBC 3-5 (0-5) /HPF Ur Epithelial Cells Many A (None Seen) /HPF Urine Bacteria Rare A (None Seen) /HPF Urine Culture Reflexed YES (NO) Slides for Path Review 06/08/24 06/08/24 06/08/24 Range/Units 19:30 19:30 19:30 WBC 11.5 H (3.98-10.04) x10^3/uL RBC 4.19 (3.93-5.22) x10^6/uL Hgb 13.1 (11.2-15.7) g/dL Hct 40.5 (34.1-44.9) % MCV 96.7 H (79.4-94.8) fL MCH 31.3 (25.6-32.2) pg MCHC 32.3 (32.2-35.5) g/dL RDW 14.6 H (11.7-14.4) % Plt Count 250 (182-369) x10^3/uL MPV 10.6 (9.4-12.3) fL Gran % 85.7 H (34.0-71.1) % Immature Gran % (Auto) 0.4 (0.001-0.429) % Nucleat RBC Rel Count 0.0 (0.00-0.2) % Eos # (Auto) 0.02 L (0.04-0.36) x10^3/uL Immature Gran # (Auto) 0.05 H (0.001-0.031) x10^3u/L Absolute Lymphs (auto) 0.90 L (1.18-3.74) x10^3/uL Absolute Monos (auto) 0.65 (0.24-0.86) x10^3/uL Absolute Nucleated RBC 0.00 (0.00-0.012) x10^3u/L Lymphocytes % 7.8 L (19.3-51.7) % Monocytes % 5.6 (4.7-12.5) % Eosinophils % 0.2 L (0.7-5.8) % Basophils % 0.3 (0.1-1.2) % Absolute Granulocytes 9.86 H (1.56-6.13) x10^3/uL Basophils # 0.03 (0.01-0.08) x10^3/uL Sodium 135 (135-145) mmol/L Potassium 3.9 (3.5-5.1) mmol/L Chloride 106 (98-107) mmol/L Carbon Dioxide 22 (22-30) mmol/L Anion Gap 11.3 (5-15) MEQ/L BUN 19 H (7-17) mg/dL Creatinine 0.85 (0.52-1.04) mg/dL Estimated GFR 70.5 ML/MIN Glucose 66 L (74-106) mg/dL POC Glucometer 63 L (74 to 106) mg/dL Calcium 9.6 (8.4-10.2) mg/dL Total Bilirubin 0.50 (0.2-1.3) mg/dL AST 36 (14-36) U/L ALT 17 (0-35) U/L Alkaline Phosphatase 63 (38-126) U/L Serum Total Protein 7.6 (6.3-8.2) g/dL Albumin 4.5 (3.5-5.0) g/dL Urine Color (Yellow) Urine Appearance (Clear) Urine pH (4.6-8.0) Ur Specific [place] (1.005-1.030) Urine Protein (Negative) Urine Glucose (UA) (Negative) mg/dL Urine Ketones (Negative) Urine Blood (Negative) Urine Nitrite (Negative) Urine Bilirubin (Negative) Urine Urobilinogen (0.2) mg/dL Ur Leukocyte Esterase (Negative) U Hyaline Cast (Auto) (0-2) /LPF Urine Microscopic RBC (0-5) /HPF Urine Microscopic WBC (0-5) /HPF Ur Epithelial Cells (None Seen) /HPF Urine Bacteria (None Seen) /HPF Urine Culture Reflexed (NO) Slides for Path Review YES - Progress Progress: re-examined Progress Note: 06/08/24 20:35 lowest BG reported in ED 63 06/08/24 20:42 repeat accucheck after starting d5 drip 65, will transition to d10 06/08/24 22:45 after 1h on D10w at 10ml - BG 29 on lab draw will order 1amp d50 given orange juice PO 06/09/24 00:09 BP elevated > 210 systolic - will give home metoprolol tartrate 75mg dose now BG increased to 242 06/09/24 00:29 repeat BG reported at 167 06/09/24 01:58 repeat BG at 94 due to lability of blood sugar over the past 7h, i do not believe pt is suitable for safe discharge home, believe pt would benefit from continued glucose infusion i discussed pt case w/ hospitalist Dr Ballard who is willing to accept pt for observation Will see patient in: hospital (observation) Counseled pt/family regarding: lab results, diagnosis, need for follow-up, rad results Medical Desision Making - Diagnostic Testing Diagnostic test were ordered, analyzed, and reviewed by me: Yes Radiological Interpretation: Reviewed by me - Risk of complications The pt has a high risk of morbidity or mortality based on: Decision regarding hospitilization or escalation of hosp level of care - Departure Departure Disposition: Observation Clinical Impression: Hypoglycemia Hypertension Qualifiers: Hypertension type: primary hypertension Qualified Code(s): I10 - Essential (primary) hypertension Condition: Stable Critical Care Time: No Referrals: BARBER FRAZIER [Primary Care Provider] - Follow up/PCP as directed
[2024-06-08] MEDS ORDERED: Dextrose 5%-NS IV Solution 1000 ML 1,000 ML IV ONE (19:33)
[2024-06-08] MEDS: Dextrose 5%-NS IV Solution 1000 ML 1,000 ML IV SCH (19:34)
[2024-06-08 19:49] LABS: Absolute Neutrophil Ct (ANC) 9.86 x10^3/uL (1.56-6.13); BASOPHIL % 0.3 % (0.1-1.2); Basophil (Absolute #) 0.03 x10^3/uL (0.01-0.08); Eosinophil % 0.2 % (0.7-5.8); Eosinophil (Absolute #) 0.02 x10^3/uL (0.04-0.36); Hematocrit 40.5 % (34.1-44.9); Hemoglobin 13.1 g/dL (11.2-15.7); IMMATURE GRAN # 0.05 x10^3u/L (0.001-0.031); IMMATURE GRAN % 0.4 % (0.001-0.429); Lymphocytes % 7.8 % (19.3-51.7); Mean Cell Volume 96.7 fL (79.4-94.8); Mean Corpuscular Hemoglobin 31.3 pg (25.6-32.2); Mean Corpuscular Hgb Concent. 32.3 g/dL (32.2-35.5); Mean Platelet Volume 10.6 fL (9.4-12.3); Monocyte (Absolute #) 0.65 x10^3/uL (0.24-0.86); Monocytes % 5.6 % (4.7-12.5); Neutrophil % 85.7 % (34.0-71.1); Platelet Count 250 x10^3/uL (182-369); Red Blood Count 4.19 x10^6/uL (3.93-5.22); Red Cell Distribution Width 14.6 % (11.7-14.4); White Blood Count 11.5 x10^3/uL (3.98-10.04)
[2024-06-08 20:00] LABS: Appearance Clear (Clear); Bacteria Rare /HPF (None Seen); Bilirubin Negative (Negative); Blood Negative (Negative); Epithelial Cells Many /HPF (None Seen); Glucose, Urine Negative (Negative); Ketones Negative (Negative); Leukocyte Esterase Negative (Negative); Nitrite Negative (Negative); Protein,Urine Dip 30 (Negative); RBC 0-2 /HPF (0-5); Urobilinogen 0.2 mg/dL (0.2)
[2024-06-08 20:05] LABS: ALBUMIN 4.5 g/dL (3.5-5.0); ANION GAP 11.3 MEQ/L (5-15); BILIRUBIN,TOTAL 0.5 mg/dL (0.2-1.3); Calcium 9.6 mg/dL (8.4-10.2); Creatinine 1 0.85 mg/dL (0.52-1.04); EST GLOMERULAR FILTRATION RATE 70.5 ML/MIN; Potassium 3.9 mmol/L (3.5-5.1); Total Protein 7.6 g/dL (6.3-8.2)
[2024-06-08] MEDS: DEXTROSE 10% 250 ML 250 ML IV SCH (20:58)
[2024-06-08 21:26] LABS: Slide Review 1 YES
[2024-06-08] MEDS ORDERED: D50W 50 ml Abboject IV ONE (22:46)
[2024-06-08] MEDS: D50W 50 ml Abboject IV ONE (22:49)
[2024-06-08] MEDS: D50W 50ML Vial IV ONE (23:06)
[2024-06-09] MEDS ORDERED: Lopressor 25MG Tab ONE (00:09)
[2024-06-09] MEDS: Lopressor 50 MG PO SCH (00:12)
[2024-06-09] MEDS: Lopressor 25MG Tab PO ONE (00:12)
[2024-06-09 03:20] VITALS: RESP 17
[2024-06-09] MEDS ORDERED: HUMALOG SQ PRN (06:14)
[2024-06-09] MEDS ORDERED: FELODIPINE 5 MG PO SCH (06:15)
--- NOTE | 2024-06-09 06:22 | PCM.HP ---
History of Present Illness - Chief Complaint Chief Complaint: hypoglycemia Date: 06/09/24 History of Present Illness: is a 78 year old female with h/o DM2, HTN, CAD, who presents with hypoglycemia. Patient had previously run out of her 1 mg glimepiride tablets for about 27 days. When she received a new prescription, she did not at first realize it was for 2 mg tablets. For three days, she has been taking 2 mg BID, and today her found her unresponsive, similar to prior episodes of hypoglycemia. When EMS arrived, her sugar was 13. She was given multiple amps of D50 by EMS. In the ED, she had repeatedly dropping Glc levels despite another D50, requiring eventually persistent D10 drip. Currently, Glc slowly trending down to 80s on D10 at 20 ml/hr. She is currently asymptomatic. Takes no insulins. No other recent fevers, chills, dysuria, or symptoms to suggest infection. - Review of Systems All Other Systems: Reviewed and Negative Medications & Allergies Home Medications: Home Medication List Cilostazol [Pletal] 100 mg PO BID 02/13/15 [History Confirmed 06/08/24] Felodipine 5 mg [Plendil ER 5 mg] 10 mg PO UD 02/13/15 [History Confirmed 06/08/24] Lisinopril 20 mg [Zestril 20 MG] 10 mg PO DAILY 02/13/15 [History Confirmed 06/08/24] Lorazepam 1 mg [Ativan 1 MG] 0 mg PO UD 02/13/15 [History Confirmed 06/08/24] Metoprolol Tartrate 25 mg [Lopressor 25MG Tab] 75 mg PO BID 02/13/15 [History Confirmed 06/08/24] [place]-3 Fatty Acids [Fish Oil] 300 mg PO DAILY 02/13/15 [History Confirmed 06/08/24] Vitamin B Complex [Super B Complex] 1 cap PO DAILY 02/13/15 [History Confirmed 06/08/24] Amlodipine Besylate 5 mg [Norvasc 5 mg] 5 mg PO DAILY 08/30/20 [History Confirmed 06/08/24] Ascorbic Acid [Vitamin C] 1,000 mg PO DAILY 08/30/20 [History Confirmed 06/08/24] Fluoxetine HCl 20 mg [Prozac 20 MG] 20 mg PO DAILY 08/30/20 [History Confirmed 06/08/24] Glimepiride [Amaryl] 2 mg PO DAILY 08/30/20 [History Confirmed 06/08/24] Simvastatin 40 mg PO DAILY 08/30/20 [History Confirmed 06/08/24] Aspirin 81 gm Chew [Baby Aspirin 81 mg Chew] 81 mg PO DAILY #0 09/11/20 [Rx Confirmed 06/08/24] Clopidogrel Bisulfate [PLAVIX Tablet] 75 mg PO DAILY #0 09/11/20 [Rx Confirmed 06/08/24] Allergies/Adverse Reactions: Allergies Allergy/AdvReac Type Severity Reaction Status Date / Time Iodinated Contrast Media AdvReac Verified 06/08/24 18:44 morphine AdvReac Verified 06/08/24 18:44 diuretics AdvReac Uncoded 06/08/24 18:44 - Past Medical History Past Medical History: Yes Neurological History: No Pertinent History ENT History: No Pertinent History Cardiac History: Congestive Heart Failure, Coronary Artery Disease, High Cholesterol, Hypertension, Myocardial Infarction (RI), Peripheral Vascular Disease, Other Respiratory History: No Pertinent History Endocrine Medical History: Diabetes Type II Musculoskelatal History: No Pertinent History GI Medical History: No Pertinent History History: Other Pyscho-Social History: Depression Reproductive Disorders: No Pertinent History Comment: 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 Significant Family History: no pertinent family hx - Social History Smoking Status: Current every day smoker How long have you smoked: 60+ years Exposure to second hand smoke: No Alcohol: None Drug Use: none - Social Determinants of Health Will the patient participate in the screening: Yes Do you worry about a steady place to live?: No Do you have any problems with any of the following?: No known problems In the past 12 months,have you had to go without utilities?: No Have you or anyone in your house had to go without enough: No Transportation Issues: No Has anyone in your support network made you feel unsafe?: No Does the patient want assistance with any of the above?: No - Physical Exam Vital Signs: Vital Signs - 24 hr Temp Pulse Resp BP BP Pulse Ox 06/09/24 04:00 97.0 F 69 17 183/79 96 06/09/24 03:00 97.0 F 69 17 183/79 96 06/09/24 02:05 98 06/09/24 02:01 67 18 185/83 97 06/09/24 01:30 68 18 153/84 96 06/09/24 01:00 68 17 182/123 100 06/09/24 00:30 208/78 96 06/09/24 00:00 70 18 218/88 97 06/08/24 23:30 211/79 98 06/08/24 23:01 65 18 182/59 98 06/08/24 22:30 72 18 188/102 97 06/08/24 22:29 96 06/08/24 22:20 96 06/08/24 22:10 97 06/08/24 22:01 95 06/08/24 21:30 185/82 06/08/24 21:00 68 17 195/76 95 06/08/24 20:59 95 06/08/24 20:50 96 06/08/24 20:40 97 06/08/24 20:33 94 L 06/08/24 20:00 71 17 179/63 96 06/08/24 19:49 168/53 97 06/08/24 19:47 218/67 97 06/08/24 19:00 70 17 182/70 96 06/08/24 18:36 96.7 F 62 188/44 98 06/08/24 18:30 188/44 98 General Appearance: no apparent distress Neurologic Exam: alert, oriented x 3, normal mood/affect Eye Exam: eyes nml inspection, No scleral icterus Ears, Nose, Throat Exam: normal ENT inspection, moist mucous membranes Neck Exam: non-tender, full range of motion Respiratory Exam: normal breath sounds, lungs clear Cardiovascular Exam: regular rate/rhythm, murmur (2/6 at LUSB), No edema Gastrointestinal/Abdomen Exam: No tenderness, No distention Back Exam: normal inspection, normal range of motion Extremity Exam: normal inspection, normal range of motion, No joint swelling Skin Exam: normal color, No rash Results - Labs Lab/Micro Results: Lab Results-Last 24 Hours 06/08/24 06/08/24 06/08/24 Range/Units 19:30 19:30 19:30 WBC 11.5 H (3.98-10.04) x10^3/uL RBC 4.19 (3.93-5.22) x10^6/uL Hgb 13.1 (11.2-15.7) g/dL Hct 40.5 (34.1-44.9) % MCV 96.7 H (79.4-94.8) fL MCH 31.3 (25.6-32.2) pg MCHC 32.3 (32.2-35.5) g/dL RDW 14.6 H (11.7-14.4) % Plt Count 250 (182-369) x10^3/uL MPV 10.6 (9.4-12.3) fL Gran % 85.7 H (34.0-71.1) % Immature Gran % (Auto) 0.4 (0.001-0.429) % Nucleat RBC Rel Count 0.0 (0.00-0.2) % Eos # (Auto) 0.02 L (0.04-0.36) x10^3/uL Immature Gran # (Auto) 0.05 H (0.001-0.031) x10^3u/L Absolute Lymphs (auto) 0.90 L (1.18-3.74) x10^3/uL Absolute Monos (auto) 0.65 (0.24-0.86) x10^3/uL Absolute Nucleated RBC 0.00 (0.00-0.012) x10^3u/L Lymphocytes % 7.8 L (19.3-51.7) % Monocytes % 5.6 (4.7-12.5) % Eosinophils % 0.2 L (0.7-5.8) % Basophils % 0.3 (0.1-1.2) % Absolute Granulocytes 9.86 H (1.56-6.13) x10^3/uL Basophils # 0.03 (0.01-0.08) x10^3/uL Sodium 135 (135-145) mmol/L Potassium 3.9 (3.5-5.1) mmol/L Chloride 106 (98-107) mmol/L Carbon Dioxide 22 (22-30) mmol/L Anion Gap 11.3 (5-15) MEQ/L BUN 19 H (7-17) mg/dL Creatinine 0.85 (0.52-1.04) mg/dL Estimated GFR 70.5 ML/MIN Glucose 66 L (74-106) mg/dL POC Glucometer 63 L (74 to 106) mg/dL Calcium 9.6 (8.4-10.2) mg/dL Total Bilirubin 0.50 (0.2-1.3) mg/dL AST 36 (14-36) U/L ALT 17 (0-35) U/L Alkaline Phosphatase 63 (38-126) U/L Serum Total Protein 7.6 (6.3-8.2) g/dL Albumin 4.5 (3.5-5.0) g/dL Urine Color (Yellow) Urine Appearance (Clear) Urine pH (4.6-8.0) Ur Specific Mary [place] (1.005-1.030) Urine Protein (Negative) Urine Glucose (UA) (Negative) mg/dL Urine Ketones (Negative) Urine Blood (Negative) Urine Nitrite (Negative) Urine Bilirubin (Negative) Urine Urobilinogen (0.2) mg/dL Ur Leukocyte Esterase (Negative) U Hyaline Cast (Auto) (0-2) /LPF Urine Microscopic RBC (0-5) /HPF Urine Microscopic WBC (0-5) /HPF Ur Epithelial Cells (None Seen) /HPF Urine Bacteria (None Seen) /HPF Urine Culture Reflexed (NO) Slides for Path Review YES 06/08/24 06/08/24 06/08/24 Range/Units 19:45 20:28 22:06 WBC (3.98-10.04) x10^3/uL RBC (3.93-5.22) x10^6/uL Hgb (11.2-15.7) g/dL Hct (34.1-44.9) % MCV (79.4-94.8) fL MCH (25.6-32.2) pg MCHC (32.2-35.5) g/dL RDW (11.7-14.4) % Plt Count (182-369) x10^3/uL MPV (9.4-12.3) fL Gran % (34.0-71.1) % Immature Gran % (Auto) (0.001-0.429) % Nucleat RBC Rel Count (0.00-0.2) % Eos # (Auto) (0.04-0.36) x10^3/uL Immature Gran # (Auto) (0.001-0.031) x10^3u/L Absolute Lymphs (auto) (1.18-3.74) x10^3/uL Absolute Monos (auto) (0.24-0.86) x10^3/uL Absolute Nucleated RBC (0.00-0.012) x10^3u/L Lymphocytes % (19.3-51.7) % Monocytes % (4.7-12.5) % Eosinophils % (0.7-5.8) % Basophils % (0.1-1.2) % Absolute Granulocytes (1.56-6.13) x10^3/uL Basophils # (0.01-0.08) x10^3/uL Sodium (135-145) mmol/L Potassium (3.5-5.1) mmol/L Chloride (98-107) mmol/L Carbon Dioxide (22-30) mmol/L Anion Gap (5-15) MEQ/L BUN (7-17) mg/dL Creatinine (0.52-1.04) mg/dL Estimated GFR ML/MIN Glucose (74-106) mg/dL POC Glucometer 65 L 25 L* (74 to 106) mg/dL Calcium (8.4-10.2) mg/dL Total Bilirubin (0.2-1.3) mg/dL AST (14-36) U/L ALT (0-35) U/L Alkaline Phosphatase (38-126) U/L Serum Total Protein (6.3-8.2) g/dL Albumin (3.5-5.0) g/dL Urine Color Yellow (Yellow) Urine Appearance Clear (Clear) Urine pH 5.0 (4.6-8.0) Ur Specific [place] 1.010 (1.005-1.030) Urine Protein 30 (Negative) Urine Glucose (UA) Negative (Negative) mg/dL Urine Ketones Negative (Negative) Urine Blood Negative (Negative) Urine Nitrite Negative (Negative) Urine Bilirubin Negative (Negative) Urine Urobilinogen 0.2 (0.2) mg/dL Ur Leukocyte Esterase Negative (Negative) U Hyaline Cast (Auto) 3-5 A (0-2) /LPF Urine Microscopic RBC 0-2 (0-5) /HPF Urine Microscopic WBC 3-5 (0-5) /HPF Ur Epithelial Cells Many A (None Seen) /HPF Urine Bacteria Rare A (None Seen) /HPF Urine Culture Reflexed YES (NO) Slides for Path Review 06/08/24 06/08/24 06/08/24 Range/Units 22:07 22:15 22:16 WBC (3.98-10.04) x10^3/uL RBC (3.93-5.22) x10^6/uL Hgb (11.2-15.7) g/dL Hct (34.1-44.9) % MCV (79.4-94.8) fL MCH (25.6-32.2) pg MCHC (32.2-35.5) g/dL RDW (11.7-14.4) % Plt Count (182-369) x10^3/uL MPV (9.4-12.3) fL Gran % (34.0-71.1) % Immature Gran % (Auto) (0.001-0.429) % Nucleat RBC Rel Count (0.00-0.2) % Eos # (Auto) (0.04-0.36) x10^3/uL Immature Gran # (Auto) (0.001-0.031) x10^3u/L Absolute Lymphs (auto) (1.18-3.74) x10^3/uL Absolute Monos (auto) (0.24-0.86) x10^3/uL Absolute Nucleated RBC (0.00-0.012) x10^3u/L Lymphocytes % (19.3-51.7) % Monocytes % (4.7-12.5) % Eosinophils % (0.7-5.8) % Basophils % (0.1-1.2) % Absolute Granulocytes (1.56-6.13) x10^3/uL Basophils # (0.01-0.08) x10^3/uL Sodium (135-145) mmol/L Potassium (3.5-5.1) mmol/L Chloride (98-107) mmol/L Carbon Dioxide (22-30) mmol/L Anion Gap (5-15) MEQ/L BUN (7-17) mg/dL Creatinine (0.52-1.04) mg/dL Estimated GFR ML/MIN Glucose (74-106) mg/dL POC Glucometer 26 L* 22 L* 23 L* (74 to 106) mg/dL Calcium (8.4-10.2) mg/dL Total Bilirubin (0.2-1.3) mg/dL AST (14-36) U/L ALT (0-35) U/L Alkaline Phosphatase (38-126) U/L Serum Total Protein (6.3-8.2) g/dL Albumin (3.5-5.0) g/dL Urine Color (Yellow) Urine Appearance (Clear) Urine pH (4.6-8.0) Ur Specific [place] (1.005-1.030) Urine Protein (Negative) Urine Glucose (UA) (Negative) mg/dL Urine Ketones (Negative) Urine Blood (Negative) Urine Nitrite (Negative) Urine Bilirubin (Negative) Urine Urobilinogen (0.2) mg/dL Ur Leukocyte Esterase (Negative) U Hyaline Cast (Auto) (0-2) /LPF Urine Microscopic RBC (0-5) /HPF Urine Microscopic WBC (0-5) /HPF Ur Epithelial Cells (None Seen) /HPF Urine Bacteria (None Seen) /HPF Urine Culture Reflexed (NO) Slides for Path Review 06/08/24 06/08/24 06/08/24 Range/Units 22:25 22:57 23:03 WBC (3.98-10.04) x10^3/uL RBC (3.93-5.22) x10^6/uL Hgb (11.2-15.7) g/dL Hct (34.1-44.9) % MCV (79.4-94.8) fL MCH (25.6-32.2) pg MCHC (32.2-35.5) g/dL RDW (11.7-14.4) % Plt Count (182-369) x10^3/uL MPV (9.4-12.3) fL Gran % (34.0-71.1) % Immature Gran % (Auto) (0.001-0.429) % Nucleat RBC Rel Count (0.00-0.2) % Eos # (Auto) (0.04-0.36) x10^3/uL Immature Gran # (Auto) (0.001-0.031) x10^3u/L Absolute Lymphs (auto) (1.18-3.74) x10^3/uL Absolute Monos (auto) (0.24-0.86) x10^3/uL Absolute Nucleated RBC (0.00-0.012) x10^3u/L Lymphocytes % (19.3-51.7) % Monocytes % (4.7-12.5) % Eosinophils % (0.7-5.8) % Basophils % (0.1-1.2) % Absolute Granulocytes (1.56-6.13) x10^3/uL Basophils # (0.01-0.08) x10^3/uL Sodium (135-145) mmol/L Potassium (3.5-5.1) mmol/L Chloride (98-107) mmol/L Carbon Dioxide (22-30) mmol/L Anion Gap (5-15) MEQ/L BUN (7-17) mg/dL Creatinine (0.52-1.04) mg/dL Estimated GFR ML/MIN Glucose 29 L* (74-106) mg/dL POC Glucometer 196 H 166 H (74 to 106) mg/dL Calcium (8.4-10.2) mg/dL Total Bilirubin (0.2-1.3) mg/dL AST (14-36) U/L ALT (0-35) U/L Alkaline Phosphatase (38-126) U/L Serum Total Protein (6.3-8.2) g/dL Albumin (3.5-5.0) g/dL Urine Color (Yellow) Urine Appearance (Clear) Urine pH (4.6-8.0) Ur Specific [place] (1.005-1.030) Urine Protein (Negative) Urine Glucose (UA) (Negative) mg/dL Urine Ketones (Negative) Urine Blood (Negative) Urine Nitrite (Negative) Urine Bilirubin (Negative) Urine Urobilinogen (0.2) mg/dL Ur Leukocyte Esterase (Negative) U Hyaline Cast (Auto) (0-2) /LPF Urine Microscopic RBC (0-5) /HPF Urine Microscopic WBC (0-5) /HPF Ur Epithelial Cells (None Seen) /HPF Urine Bacteria (None Seen) /HPF Urine Culture Reflexed (NO) Slides for Path Review 06/08/24 06/09/24 06/09/24 Range/Units 23:23 00:23 01:32 WBC (3.98-10.04) x10^3/uL RBC (3.93-5.22) x10^6/uL Hgb (11.2-15.7) g/dL Hct (34.1-44.9) % MCV (79.4-94.8) fL MCH (25.6-32.2) pg MCHC (32.2-35.5) g/dL RDW (11.7-14.4) % Plt Count (182-369) x10^3/uL MPV (9.4-12.3) fL Gran % (34.0-71.1) % Immature Gran % (Auto) (0.001-0.429) % Nucleat RBC Rel Count (0.00-0.2) % Eos # (Auto) (0.04-0.36) x10^3/uL Immature Gran # (Auto) (0.001-0.031) x10^3u/L Absolute Lymphs (auto) (1.18-3.74) x10^3/uL Absolute Monos (auto) (0.24-0.86) x10^3/uL Absolute Nucleated RBC (0.00-0.012) x10^3u/L Lymphocytes % (19.3-51.7) % Monocytes % (4.7-12.5) % Eosinophils % (0.7-5.8) % Basophils % (0.1-1.2) % Absolute Granulocytes (1.56-6.13) x10^3/uL Basophils # (0.01-0.08) x10^3/uL Sodium (135-145) mmol/L Potassium (3.5-5.1) mmol/L Chloride (98-107) mmol/L Carbon Dioxide (22-30) mmol/L Anion Gap (5-15) MEQ/L BUN (7-17) mg/dL Creatinine (0.52-1.04) mg/dL Estimated GFR ML/MIN Glucose (74-106) mg/dL POC Glucometer 242 H 167 H 94 (74 to 106) mg/dL Calcium (8.4-10.2) mg/dL Total Bilirubin (0.2-1.3) mg/dL AST (14-36) U/L ALT (0-35) U/L Alkaline Phosphatase (38-126) U/L Serum Total Protein (6.3-8.2) g/dL Albumin (3.5-5.0) g/dL Urine Color (Yellow) Urine Appearance (Clear) Urine pH (4.6-8.0) Ur Specific [place] (1.005-1.030) Urine Protein (Negative) Urine Glucose (UA) (Negative) mg/dL Urine Ketones (Negative) Urine Blood (Negative) Urine Nitrite (Negative) Urine Bilirubin (Negative) Urine Urobilinogen (0.2) mg/dL Ur Leukocyte Esterase (Negative) U Hyaline Cast (Auto) (0-2) /LPF Urine Microscopic RBC (0-5) /HPF Urine Microscopic WBC (0-5) /HPF Ur Epithelial Cells (None Seen) /HPF Urine Bacteria (None Seen) /HPF Urine Culture Reflexed (NO) Slides for Path Review 06/09/24 06/09/24 06/09/24 Range/Units 02:36 03:24 04:36 WBC (3.98-10.04) x10^3/uL RBC (3.93-5.22) x10^6/uL Hgb (11.2-15.7) g/dL Hct (34.1-44.9) % MCV (79.4-94.8) fL MCH (25.6-32.2) pg MCHC (32.2-35.5) g/dL RDW (11.7-14.4) % Plt Count (182-369) x10^3/uL MPV (9.4-12.3) fL Gran % (34.0-71.1) % Immature Gran % (Auto) (0.001-0.429) % Nucleat RBC Rel Count (0.00-0.2) % Eos # (Auto) (0.04-0.36) x10^3/uL Immature Gran # (Auto) (0.001-0.031) x10^3u/L Absolute Lymphs (auto) (1.18-3.74) x10^3/uL Absolute Monos (auto) (0.24-0.86) x10^3/uL Absolute Nucleated RBC (0.00-0.012) x10^3u/L Lymphocytes % (19.3-51.7) % Monocytes % (4.7-12.5) % Eosinophils % (0.7-5.8) % Basophils % (0.1-1.2) % Absolute Granulocytes (1.56-6.13) x10^3/uL Basophils # (0.01-0.08) x10^3/uL Sodium (135-145) mmol/L Potassium (3.5-5.1) mmol/L Chloride (98-107) mmol/L Carbon Dioxide (22-30) mmol/L Anion Gap (5-15) MEQ/L BUN (7-17) mg/dL Creatinine (0.52-1.04) mg/dL Estimated GFR ML/MIN Glucose (74-106) mg/dL POC Glucometer 88 84 76 (74 to 106) mg/dL Calcium (8.4-10.2) mg/dL Total Bilirubin (0.2-1.3) mg/dL AST (14-36) U/L ALT (0-35) U/L Alkaline Phosphatase (38-126) U/L Serum Total Protein (6.3-8.2) g/dL Albumin (3.5-5.0) g/dL Urine Color (Yellow) Urine Appearance (Clear) Urine pH (4.6-8.0) Ur Specific [place] (1.005-1.030) Urine Protein (Negative) Urine Glucose (UA) (Negative) mg/dL Urine Ketones (Negative) Urine Blood (Negative) Urine Nitrite (Negative) Urine Bilirubin (Negative) Urine Urobilinogen (0.2) mg/dL Ur Leukocyte Esterase (Negative) U Hyaline Cast (Auto) (0-2) /LPF Urine Microscopic RBC (0-5) /HPF Urine Microscopic WBC (0-5) /HPF Ur Epithelial Cells (None Seen) /HPF Urine Bacteria (None Seen) /HPF Urine Culture Reflexed (NO) Slides for Path Review 06/09/24 Range/Units 05:21 WBC (3.98-10.04) x10^3/uL RBC (3.93-5.22) x10^6/uL Hgb (11.2-15.7) g/dL Hct (34.1-44.9) % MCV (79.4-94.8) fL MCH (25.6-32.2) pg MCHC (32.2-35.5) g/dL RDW (11.7-14.4) % Plt Count (182-369) x10^3/uL MPV (9.4-12.3) fL Gran % (34.0-71.1) % Immature Gran % (Auto) (0.001-0.429) % Nucleat RBC Rel Count (0.00-0.2) % Eos # (Auto) (0.04-0.36) x10^3/uL Immature Gran # (Auto) (0.001-0.031) x10^3u/L Absolute Lymphs (auto) (1.18-3.74) x10^3/uL Absolute Monos (auto) (0.24-0.86) x10^3/uL Absolute Nucleated RBC (0.00-0.012) x10^3u/L Lymphocytes % (19.3-51.7) % Monocytes % (4.7-12.5) % Eosinophils % (0.7-5.8) % Basophils % (0.1-1.2) % Absolute Granulocytes (1.56-6.13) x10^3/uL Basophils # (0.01-0.08) x10^3/uL Sodium (135-145) mmol/L Potassium (3.5-5.1) mmol/L Chloride (98-107) mmol/L Carbon Dioxide (22-30) mmol/L Anion Gap (5-15) MEQ/L BUN (7-17) mg/dL Creatinine (0.52-1.04) mg/dL Estimated GFR ML/MIN Glucose (74-106) mg/dL POC Glucometer 85 (74 to 106) mg/dL Calcium (8.4-10.2) mg/dL Total Bilirubin (0.2-1.3) mg/dL AST (14-36) U/L ALT (0-35) U/L Alkaline Phosphatase (38-126) U/L Serum Total Protein (6.3-8.2) g/dL Albumin (3.5-5.0) g/dL Urine Color (Yellow) Urine Appearance (Clear) Urine pH (4.6-8.0) Ur Specific [place] (1.005-1.030) Urine Protein (Negative) Urine Glucose (UA) (Negative) mg/dL Urine Ketones (Negative) Urine Blood (Negative) Urine Nitrite (Negative) Urine Bilirubin (Negative) Urine Urobilinogen (0.2) mg/dL Ur Leukocyte Esterase (Negative) U Hyaline Cast (Auto) (0-2) /LPF Urine Microscopic RBC (0-5) /HPF Urine Microscopic WBC (0-5) /HPF Ur Epithelial Cells (None Seen) /HPF Urine Bacteria (None Seen) /HPF Urine Culture Reflexed (NO) Slides for Path Review Accuchecks Date 06/09/24 Date 06/09/24 Date 06/09/24 Date 06/09/24 Date 06/09/24 Date 06/09/24 Date 06/08/24 Date 06/08/24 Time 05:23 Time 03:30 Time 02:34 Time 01:30 Time 00:28 Time 23:20 Time 22:20 Time 19:25 Assessment/Plan (1) Hypoglycemia Current Visit: Yes Status: Acute Assessment & Plan: 78 y/o F with h/o DM2, HTN, and CAD, here with persistent hypoglycemia. ## Hypoglycemia, DM2 - likely due to inadvertent overdosing of sulfonylureas. Takes over 24 hours for effects to slowly decrease, explaining why keeps dropping Glc when try to stop continuous dextrose infusions. Currently trending down again. - increase D10 to 25 ml/hr - check glc q1h - should be able to start spacing out as glc levels stabilize, then start to decrease D10 drip rate - place on low dose sliding scale insulin for coverage ## HTN - BP controlled - continue home Norvasc 5, Lopressor 50, lisinopril 20 ## CAD - continue Plavix 75, Lopressor 50 Code status: DNR (confirmed today with patient) Prophylaxis: low risk, encourage ambulation Diet: Diabetic Dispo: Place in observation Code(s): E16.2 - HYPOGLYCEMIA, UNSPECIFIED Telemedicine Encounter - Telemedicine Encounter Telemedicine Encounter: "The entirety of this encounter was performed via Telemedicine" This visit was performed using real-time audio and video connection between my location and thepatients locationwith the assistance of a surrogateat the patients location. Written or verbal consent was obtained from the patient/guardian to perform this [facility]. Any patient questions regarding the telemedicine interaction were answered.
[2024-06-09 07:24] VITALS: TEMP 97
[2024-06-09] MEDS ORDERED: MEDICATION INTERVENTION MC SCH (08:15)
[2024-06-09] MEDS: PLAVIX Tablet PO SCH (09:55)
[2024-06-09] MEDS: ECOTRIN 81 MG PO SCH (09:55)
[2024-06-09] MEDS: NORVASC 5 MG PO SCH (09:55)
[2024-06-09] MEDS: ZOCOR 20MG PO SCH (09:55)
[2024-06-09] MEDS: Zestril 10 MG PO SCH (09:56)
[2024-06-09] MEDS: Prozac 20 MG PO SCH (09:56)
[2024-06-09] MEDS ORDERED: Lopressor 50 MG PO SCH (10:00)
[2024-06-09] MEDS ORDERED: NON-FORMULARY ITEM (Simvastatin [Simvastatin] 40 MG Tablet) PO SCH (10:00)
[2024-06-09] MEDS ORDERED: Zestril 20 MG PO SCH (10:00)
[2024-06-09] MEDS ORDERED: BABY ASPIRIN 81 MG CHEW PO SCH (10:00)
--- NOTE | 2024-06-09 15:07 | PCM.DS ---
Discharge Summary Date of Admission: 06/09/24 02:25 Date of Discharge: 06/09/24 Admitting Physician: DONNA LEMA MD Primary Care Provider: BARBER FRAZIER Allergies Allergies Iodinated Contrast Media Adverse Reaction (Verified 06/08/24 18:44) nausea, vomiting morphine Adverse Reaction (Verified 06/08/24 18:44) nausea and vomiting diuretics Adverse Reaction (Uncoded 06/08/24 18:44) electolyte [facility] Hospital Summary - Hospital Course Hospital Course: Patient presented with hypoglycemia which required dextrose administration. Gli mperide will need to be at least temporarily suspended until follow up with Dr. Frazier. The patient only consumes 1 meal daily, which potentiates the risk of hypoglycemia and complicates the patient's diabetic management. The patient was advised to try to eat 3 square meals with snacks, but there may be a concern about food scarcity/affordability for the patient and her . Blood sugar has been stable after the dextrose was discontinued, and the patient is requesting discharge to home. - Vitals & Intake/Output Vital Signs: Vital Signs Temperature 97 F 06/09/24 12:00 Pulse Rate 61 06/09/24 12:00 Respiratory Rate 17 06/09/24 12:00 Blood Pressure 179/80 06/09/24 12:00 O2 Sat by Pulse Oximetry 94 L 06/09/24 12:00 Intake & Output: Intake & Output 06/07/24 06/08/24 06/09/24 06/10/24 11:59 11:59 11:59 11:59 Intake Total 120 120 Balance 120 120 Weight 49.9 kg - Lab Result Diagrams: 06/08/24 19:30 06/08/24 19:30 Lab Results-Last 24 Hrs: Lab Results-Last 24 Hours 06/08/24 06/08/24 06/08/24 Range/Units 19:30 19:30 19:30 WBC 11.5 H (3.98-10.04) x10^3/uL RBC 4.19 (3.93-5.22) x10^6/uL Hgb 13.1 (11.2-15.7) g/dL Hct 40.5 (34.1-44.9) % MCV 96.7 H (79.4-94.8) fL MCH 31.3 (25.6-32.2) pg MCHC 32.3 (32.2-35.5) g/dL RDW 14.6 H (11.7-14.4) % Plt Count 250 (182-369) x10^3/uL MPV 10.6 (9.4-12.3) fL Gran % 85.7 H (34.0-71.1) % Immature Gran % (Auto) 0.4 (0.001-0.429) % Nucleat RBC Rel Count 0.0 (0.00-0.2) % Eos # (Auto) 0.02 L (0.04-0.36) x10^3/uL Immature Gran # (Auto) 0.05 H (0.001-0.031) x10^3u/L Absolute Lymphs (auto) 0.90 L (1.18-3.74) x10^3/uL Absolute Monos (auto) 0.65 (0.24-0.86) x10^3/uL Absolute Nucleated RBC 0.00 (0.00-0.012) x10^3u/L Lymphocytes % 7.8 L (19.3-51.7) % Monocytes % 5.6 (4.7-12.5) % Eosinophils % 0.2 L (0.7-5.8) % Basophils % 0.3 (0.1-1.2) % Absolute Granulocytes 9.86 H (1.56-6.13) x10^3/uL Basophils # 0.03 (0.01-0.08) x10^3/uL Sodium 135 (135-145) mmol/L Potassium 3.9 (3.5-5.1) mmol/L Chloride 106 (98-107) mmol/L Carbon Dioxide 22 (22-30) mmol/L Anion Gap 11.3 (5-15) MEQ/L BUN 19 H (7-17) mg/dL Creatinine 0.85 (0.52-1.04) mg/dL Estimated GFR 70.5 ML/MIN Glucose 66 L (74-106) mg/dL POC Glucometer 63 L (74 to 106) mg/dL Hemoglobin A1c (4.5-6.0) % Calcium 9.6 (8.4-10.2) mg/dL Total Bilirubin 0.50 (0.2-1.3) mg/dL AST 36 (14-36) U/L ALT 17 (0-35) U/L Alkaline Phosphatase 63 (38-126) U/L Serum Total Protein 7.6 (6.3-8.2) g/dL Albumin 4.5 (3.5-5.0) g/dL Urine Color (Yellow) Urine Appearance (Clear) Urine pH (4.6-8.0) Ur Specific [place] (1.005-1.030) Urine Protein (Negative) Urine Glucose (UA) (Negative) mg/dL Urine Ketones (Negative) Urine Blood (Negative) Urine Nitrite (Negative) Urine Bilirubin (Negative) Urine Urobilinogen (0.2) mg/dL Ur Leukocyte Esterase (Negative) U Hyaline Cast (Auto) (0-2) /LPF Urine Microscopic RBC (0-5) /HPF Urine Microscopic WBC (0-5) /HPF Ur Epithelial Cells (None Seen) /HPF Urine Bacteria (None Seen) /HPF Urine Culture Reflexed (NO) Slides for Path Review YES 06/08/24 06/08/24 06/08/24 Range/Units 19:45 20:28 22:06 WBC (3.98-10.04) x10^3/uL RBC (3.93-5.22) x10^6/uL Hgb (11.2-15.7) g/dL Hct (34.1-44.9) % MCV (79.4-94.8) fL MCH (25.6-32.2) pg MCHC (32.2-35.5) g/dL RDW (11.7-14.4) % Plt Count (182-369) x10^3/uL MPV (9.4-12.3) fL Gran % (34.0-71.1) % Immature Gran % (Auto) (0.001-0.429) % Nucleat RBC Rel Count (0.00-0.2) % Eos # (Auto) (0.04-0.36) x10^3/uL Immature Gran # (Auto) (0.001-0.031) x10^3u/L Absolute Lymphs (auto) (1.18-3.74) x10^3/uL Absolute Monos (auto) (0.24-0.86) x10^3/uL Absolute Nucleated RBC (0.00-0.012) x10^3u/L Lymphocytes % (19.3-51.7) % Monocytes % (4.7-12.5) % Eosinophils % (0.7-5.8) % Basophils % (0.1-1.2) % Absolute Granulocytes (1.56-6.13) x10^3/uL Basophils # (0.01-0.08) x10^3/uL Sodium (135-145) mmol/L Potassium (3.5-5.1) mmol/L Chloride (98-107) mmol/L Carbon Dioxide (22-30) mmol/L Anion Gap (5-15) MEQ/L BUN (7-17) mg/dL Creatinine (0.52-1.04) mg/dL Estimated GFR ML/MIN Glucose (74-106) mg/dL POC Glucometer 65 L 25 L* (74 to 106) mg/dL Hemoglobin A1c (4.5-6.0) % Calcium (8.4-10.2) mg/dL Total Bilirubin (0.2-1.3) mg/dL AST (14-36) U/L ALT (0-35) U/L Alkaline Phosphatase (38-126) U/L Serum Total Protein (6.3-8.2) g/dL Albumin (3.5-5.0) g/dL Urine Color Yellow (Yellow) Urine Appearance Clear (Clear) Urine pH 5.0 (4.6-8.0) Ur Specific [place] 1.010 (1.005-1.030) Urine Protein 30 (Negative) Urine Glucose (UA) Negative (Negative) mg/dL Urine Ketones Negative (Negative) Urine Blood Negative (Negative) Urine Nitrite Negative (Negative) Urine Bilirubin Negative (Negative) Urine Urobilinogen 0.2 (0.2) mg/dL Ur Leukocyte Esterase Negative (Negative) U Hyaline Cast (Auto) 3-5 A (0-2) /LPF Urine Microscopic RBC 0-2 (0-5) /HPF Urine Microscopic WBC 3-5 (0-5) /HPF Ur Epithelial Cells Many A (None Seen) /HPF Urine Bacteria Rare A (None Seen) /HPF Urine Culture Reflexed YES (NO) Slides for Path Review 06/08/24 06/08/24 06/08/24 Range/Units 22:07 22:15 22:16 WBC (3.98-10.04) x10^3/uL RBC (3.93-5.22) x10^6/uL Hgb (11.2-15.7) g/dL Hct (34.1-44.9) % MCV (79.4-94.8) fL MCH (25.6-32.2) pg MCHC (32.2-35.5) g/dL RDW (11.7-14.4) % Plt Count (182-369) x10^3/uL MPV (9.4-12.3) fL Gran % (34.0-71.1) % Immature Gran % (Auto) (0.001-0.429) % Nucleat RBC Rel Count (0.00-0.2) % Eos # (Auto) (0.04-0.36) x10^3/uL Immature Gran # (Auto) (0.001-0.031) x10^3u/L Absolute Lymphs (auto) (1.18-3.74) x10^3/uL Absolute Monos (auto) (0.24-0.86) x10^3/uL Absolute Nucleated RBC (0.00-0.012) x10^3u/L Lymphocytes % (19.3-51.7) % Monocytes % (4.7-12.5) % Eosinophils % (0.7-5.8) % Basophils % (0.1-1.2) % Absolute Granulocytes (1.56-6.13) x10^3/uL Basophils # (0.01-0.08) x10^3/uL Sodium (135-145) mmol/L Potassium (3.5-5.1) mmol/L Chloride (98-107) mmol/L Carbon Dioxide (22-30) mmol/L Anion Gap (5-15) MEQ/L BUN (7-17) mg/dL Creatinine (0.52-1.04) mg/dL Estimated GFR ML/MIN Glucose (74-106) mg/dL POC Glucometer 26 L* 22 L* 23 L* (74 to 106) mg/dL Hemoglobin A1c (4.5-6.0) % Calcium (8.4-10.2) mg/dL Total Bilirubin (0.2-1.3) mg/dL AST (14-36) U/L ALT (0-35) U/L Alkaline Phosphatase (38-126) U/L Serum Total Protein (6.3-8.2) g/dL Albumin (3.5-5.0) g/dL Urine Color (Yellow) Urine Appearance (Clear) Urine pH (4.6-8.0) Ur Specific [place] (1.005-1.030) Urine Protein (Negative) Urine Glucose (UA) (Negative) mg/dL Urine Ketones (Negative) Urine Blood (Negative) Urine Nitrite (Negative) Urine Bilirubin (Negative) Urine Urobilinogen (0.2) mg/dL Ur Leukocyte Esterase (Negative) U Hyaline Cast (Auto) (0-2) /LPF Urine Microscopic RBC (0-5) /HPF Urine Microscopic WBC (0-5) /HPF Ur Epithelial Cells (None Seen) /HPF Urine Bacteria (None Seen) /HPF Urine Culture Reflexed (NO) Slides for Path Review 06/08/24 06/08/24 06/08/24 Range/Units 22:25 22:57 23:03 WBC (3.98-10.04) x10^3/uL RBC (3.93-5.22) x10^6/uL Hgb (11.2-15.7) g/dL Hct (34.1-44.9) % MCV (79.4-94.8) fL MCH (25.6-32.2) pg MCHC (32.2-35.5) g/dL RDW (11.7-14.4) % Plt Count (182-369) x10^3/uL MPV (9.4-12.3) fL Gran % (34.0-71.1) % Immature Gran % (Auto) (0.001-0.429) % Nucleat RBC Rel Count (0.00-0.2) % Eos # (Auto) (0.04-0.36) x10^3/uL Immature Gran # (Auto) (0.001-0.031) x10^3u/L Absolute Lymphs (auto) (1.18-3.74) x10^3/uL Absolute Monos (auto) (0.24-0.86) x10^3/uL Absolute Nucleated RBC (0.00-0.012) x10^3u/L Lymphocytes % (19.3-51.7) % Monocytes % (4.7-12.5) % Eosinophils % (0.7-5.8) % Basophils % (0.1-1.2) % Absolute Granulocytes (1.56-6.13) x10^3/uL Basophils # (0.01-0.08) x10^3/uL Sodium (135-145) mmol/L Potassium (3.5-5.1) mmol/L Chloride (98-107) mmol/L Carbon Dioxide (22-30) mmol/L Anion Gap (5-15) MEQ/L BUN (7-17) mg/dL Creatinine (0.52-1.04) mg/dL Estimated GFR ML/MIN Glucose 29 L* (74-106) mg/dL POC Glucometer 196 H 166 H (74 to 106) mg/dL Hemoglobin A1c (4.5-6.0) % Calcium (8.4-10.2) mg/dL Total Bilirubin (0.2-1.3) mg/dL AST (14-36) U/L ALT (0-35) U/L Alkaline Phosphatase (38-126) U/L Serum Total Protein (6.3-8.2) g/dL Albumin (3.5-5.0) g/dL Urine Color (Yellow) Urine Appearance (Clear) Urine pH (4.6-8.0) Ur Specific [place] (1.005-1.030) Urine Protein (Negative) Urine Glucose (UA) (Negative) mg/dL Urine Ketones (Negative) Urine Blood (Negative) Urine Nitrite (Negative) Urine Bilirubin (Negative) Urine Urobilinogen (0.2) mg/dL Ur Leukocyte Esterase (Negative) U Hyaline Cast (Auto) (0-2) /LPF Urine Microscopic RBC (0-5) /HPF Urine Microscopic WBC (0-5) /HPF Ur Epithelial Cells (None Seen) /HPF Urine Bacteria (None Seen) /HPF Urine Culture Reflexed (NO) Slides for Path Review 06/08/24 06/09/24 06/09/24 Range/Units 23:23 00:23 01:32 WBC (3.98-10.04) x10^3/uL RBC (3.93-5.22) x10^6/uL Hgb (11.2-15.7) g/dL Hct (34.1-44.9) % MCV (79.4-94.8) fL MCH (25.6-32.2) pg MCHC (32.2-35.5) g/dL RDW (11.7-14.4) % Plt Count (182-369) x10^3/uL MPV (9.4-12.3) fL Gran % (34.0-71.1) % Immature Gran % (Auto) (0.001-0.429) % Nucleat RBC Rel Count (0.00-0.2) % Eos # (Auto) (0.04-0.36) x10^3/uL Immature Gran # (Auto) (0.001-0.031) x10^3u/L Absolute Lymphs (auto) (1.18-3.74) x10^3/uL Absolute Monos (auto) (0.24-0.86) x10^3/uL Absolute Nucleated RBC (0.00-0.012) x10^3u/L Lymphocytes % (19.3-51.7) % Monocytes % (4.7-12.5) % Eosinophils % (0.7-5.8) % Basophils % (0.1-1.2) % Absolute Granulocytes (1.56-6.13) x10^3/uL Basophils # (0.01-0.08) x10^3/uL Sodium (135-145) mmol/L Potassium (3.5-5.1) mmol/L Chloride (98-107) mmol/L Carbon Dioxide (22-30) mmol/L Anion Gap (5-15) MEQ/L BUN (7-17) mg/dL Creatinine (0.52-1.04) mg/dL Estimated GFR ML/MIN Glucose (74-106) mg/dL POC Glucometer 242 H 167 H 94 (74 to 106) mg/dL Hemoglobin A1c (4.5-6.0) % Calcium (8.4-10.2) mg/dL Total Bilirubin (0.2-1.3) mg/dL AST (14-36) U/L ALT (0-35) U/L Alkaline Phosphatase (38-126) U/L Serum Total Protein (6.3-8.2) g/dL Albumin (3.5-5.0) g/dL Urine Color (Yellow) Urine Appearance (Clear) Urine pH (4.6-8.0) Ur Specific [place] (1.005-1.030) Urine Protein (Negative) Urine Glucose (UA) (Negative) mg/dL Urine Ketones (Negative) Urine Blood (Negative) Urine Nitrite (Negative) Urine Bilirubin (Negative) Urine Urobilinogen (0.2) mg/dL Ur Leukocyte Esterase (Negative) U Hyaline Cast (Auto) (0-2) /LPF Urine Microscopic RBC (0-5) /HPF Urine Microscopic WBC (0-5) /HPF Ur Epithelial Cells (None Seen) /HPF Urine Bacteria (None Seen) /HPF Urine Culture Reflexed (NO) Slides for Path Review 06/09/24 06/09/24 06/09/24 Range/Units 02:36 03:24 04:36 WBC (3.98-10.04) x10^3/uL RBC (3.93-5.22) x10^6/uL Hgb (11.2-15.7) g/dL Hct (34.1-44.9) % MCV (79.4-94.8) fL MCH (25.6-32.2) pg MCHC (32.2-35.5) g/dL RDW (11.7-14.4) % Plt Count (182-369) x10^3/uL MPV (9.4-12.3) fL Gran % (34.0-71.1) % Immature Gran % (Auto) (0.001-0.429) % Nucleat RBC Rel Count (0.00-0.2) % Eos # (Auto) (0.04-0.36) x10^3/uL Immature Gran # (Auto) (0.001-0.031) x10^3u/L Absolute Lymphs (auto) (1.18-3.74) x10^3/uL Absolute Monos (auto) (0.24-0.86) x10^3/uL Absolute Nucleated RBC (0.00-0.012) x10^3u/L Lymphocytes % (19.3-51.7) % Monocytes % (4.7-12.5) % Eosinophils % (0.7-5.8) % Basophils % (0.1-1.2) % Absolute Granulocytes (1.56-6.13) x10^3/uL Basophils # (0.01-0.08) x10^3/uL Sodium (135-145) mmol/L Potassium (3.5-5.1) mmol/L Chloride (98-107) mmol/L Carbon Dioxide (22-30) mmol/L Anion Gap (5-15) MEQ/L BUN (7-17) mg/dL Creatinine (0.52-1.04) mg/dL Estimated GFR ML/MIN Glucose (74-106) mg/dL POC Glucometer 88 84 76 (74 to 106) mg/dL Hemoglobin A1c (4.5-6.0) % Calcium (8.4-10.2) mg/dL Total Bilirubin (0.2-1.3) mg/dL AST (14-36) U/L ALT (0-35) U/L Alkaline Phosphatase (38-126) U/L Serum Total Protein (6.3-8.2) g/dL Albumin (3.5-5.0) g/dL Urine Color (Yellow) Urine Appearance (Clear) Urine pH (4.6-8.0) Ur Specific [place] (1.005-1.030) Urine Protein (Negative) Urine Glucose (UA) (Negative) mg/dL Urine Ketones (Negative) Urine Blood (Negative) Urine Nitrite (Negative) Urine Bilirubin (Negative) Urine Urobilinogen (0.2) mg/dL Ur Leukocyte Esterase (Negative) U Hyaline Cast (Auto) (0-2) /LPF Urine Microscopic RBC (0-5) /HPF Urine Microscopic WBC (0-5) /HPF Ur Epithelial Cells (None Seen) /HPF Urine Bacteria (None Seen) /HPF Urine Culture Reflexed (NO) Slides for Path Review 06/09/24 06/09/24 06/09/24 Range/Units 05:21 06:24 07:13 WBC (3.98-10.04) x10^3/uL RBC (3.93-5.22) x10^6/uL Hgb (11.2-15.7) g/dL Hct (34.1-44.9) % MCV (79.4-94.8) fL MCH (25.6-32.2) pg MCHC (32.2-35.5) g/dL RDW (11.7-14.4) % Plt Count (182-369) x10^3/uL MPV (9.4-12.3) fL Gran % (34.0-71.1) % Immature Gran % (Auto) (0.001-0.429) % Nucleat RBC Rel Count (0.00-0.2) % Eos # (Auto) (0.04-0.36) x10^3/uL Immature Gran # (Auto) (0.001-0.031) x10^3u/L Absolute Lymphs (auto) (1.18-3.74) x10^3/uL Absolute Monos (auto) (0.24-0.86) x10^3/uL Absolute Nucleated RBC (0.00-0.012) x10^3u/L Lymphocytes % (19.3-51.7) % Monocytes % (4.7-12.5) % Eosinophils % (0.7-5.8) % Basophils % (0.1-1.2) % Absolute Granulocytes (1.56-6.13) x10^3/uL Basophils # (0.01-0.08) x10^3/uL Sodium (135-145) mmol/L Potassium (3.5-5.1) mmol/L Chloride (98-107) mmol/L Carbon Dioxide (22-30) mmol/L Anion Gap (5-15) MEQ/L BUN (7-17) mg/dL Creatinine (0.52-1.04) mg/dL Estimated GFR ML/MIN Glucose (74-106) mg/dL POC Glucometer 85 77 98 (74 to 106) mg/dL Hemoglobin A1c (4.5-6.0) % Calcium (8.4-10.2) mg/dL Total Bilirubin (0.2-1.3) mg/dL AST (14-36) U/L ALT (0-35) U/L Alkaline Phosphatase (38-126) U/L Serum Total Protein (6.3-8.2) g/dL Albumin (3.5-5.0) g/dL Urine Color (Yellow) Urine Appearance (Clear) Urine pH (4.6-8.0) Ur Specific [place] (1.005-1.030) Urine Protein (Negative) Urine Glucose (UA) (Negative) mg/dL Urine Ketones (Negative) Urine Blood (Negative) Urine Nitrite (Negative) Urine Bilirubin (Negative) Urine Urobilinogen (0.2) mg/dL Ur Leukocyte Esterase (Negative) U Hyaline Cast (Auto) (0-2) /LPF Urine Microscopic RBC (0-5) /HPF Urine Microscopic WBC (0-5) /HPF Ur Epithelial Cells (None Seen) /HPF Urine Bacteria (None Seen) /HPF Urine Culture Reflexed (NO) Slides for Path Review 06/09/24 06/09/24 06/09/24 Range/Units 08:04 09:04 09:58 WBC (3.98-10.04) x10^3/uL RBC (3.93-5.22) x10^6/uL Hgb (11.2-15.7) g/dL Hct (34.1-44.9) % MCV (79.4-94.8) fL MCH (25.6-32.2) pg MCHC (32.2-35.5) g/dL RDW (11.7-14.4) % Plt Count (182-369) x10^3/uL MPV (9.4-12.3) fL Gran % (34.0-71.1) % Immature Gran % (Auto) (0.001-0.429) % Nucleat RBC Rel Count (0.00-0.2) % Eos # (Auto) (0.04-0.36) x10^3/uL Immature Gran # (Auto) (0.001-0.031) x10^3u/L Absolute Lymphs (auto) (1.18-3.74) x10^3/uL Absolute Monos (auto) (0.24-0.86) x10^3/uL Absolute Nucleated RBC (0.00-0.012) x10^3u/L Lymphocytes % (19.3-51.7) % Monocytes % (4.7-12.5) % Eosinophils % (0.7-5.8) % Basophils % (0.1-1.2) % Absolute Granulocytes (1.56-6.13) x10^3/uL Basophils # (0.01-0.08) x10^3/uL Sodium (135-145) mmol/L Potassium (3.5-5.1) mmol/L Chloride (98-107) mmol/L Carbon Dioxide (22-30) mmol/L Anion Gap (5-15) MEQ/L BUN (7-17) mg/dL Creatinine (0.52-1.04) mg/dL Estimated GFR ML/MIN Glucose (74-106) mg/dL POC Glucometer 100 118 H 115 H (74 to 106) mg/dL Hemoglobin A1c (4.5-6.0) % Calcium (8.4-10.2) mg/dL Total Bilirubin (0.2-1.3) mg/dL AST (14-36) U/L ALT (0-35) U/L Alkaline Phosphatase (38-126) U/L Serum Total Protein (6.3-8.2) g/dL Albumin (3.5-5.0) g/dL Urine Color (Yellow) Urine Appearance (Clear) Urine pH (4.6-8.0) Ur Specific [place] (1.005-1.030) Urine Protein (Negative) Urine Glucose (UA) (Negative) mg/dL Urine Ketones (Negative) Urine Blood (Negative) Urine Nitrite (Negative) Urine Bilirubin (Negative) Urine Urobilinogen (0.2) mg/dL Ur Leukocyte Esterase (Negative) U Hyaline Cast (Auto) (0-2) /LPF Urine Microscopic RBC (0-5) /HPF Urine Microscopic WBC (0-5) /HPF Ur Epithelial Cells (None Seen) /HPF Urine Bacteria (None Seen) /HPF Urine Culture Reflexed (NO) Slides for Path Review 06/09/24 06/09/24 06/09/24 Range/Units 11:05 11:57 13:05 WBC (3.98-10.04) x10^3/uL RBC (3.93-5.22) x10^6/uL Hgb (11.2-15.7) g/dL Hct (34.1-44.9) % MCV (79.4-94.8) fL MCH (25.6-32.2) pg MCHC (32.2-35.5) g/dL RDW (11.7-14.4) % Plt Count (182-369) x10^3/uL MPV (9.4-12.3) fL Gran % (34.0-71.1) % Immature Gran % (Auto) (0.001-0.429) % Nucleat RBC Rel Count (0.00-0.2) % Eos # (Auto) (0.04-0.36) x10^3/uL Immature Gran # (Auto) (0.001-0.031) x10^3u/L Absolute Lymphs (auto) (1.18-3.74) x10^3/uL Absolute Monos (auto) (0.24-0.86) x10^3/uL Absolute Nucleated RBC (0.00-0.012) x10^3u/L Lymphocytes % (19.3-51.7) % Monocytes % (4.7-12.5) % Eosinophils % (0.7-5.8) % Basophils % (0.1-1.2) % Absolute Granulocytes (1.56-6.13) x10^3/uL Basophils # (0.01-0.08) x10^3/uL Sodium (135-145) mmol/L Potassium (3.5-5.1) mmol/L Chloride (98-107) mmol/L Carbon Dioxide (22-30) mmol/L Anion Gap (5-15) MEQ/L BUN (7-17) mg/dL Creatinine (0.52-1.04) mg/dL Estimated GFR ML/MIN Glucose (74-106) mg/dL POC Glucometer 129 H 112 H 131 H (74 to 106) mg/dL Hemoglobin A1c (4.5-6.0) % Calcium (8.4-10.2) mg/dL Total Bilirubin (0.2-1.3) mg/dL AST (14-36) U/L ALT (0-35) U/L Alkaline Phosphatase (38-126) U/L Serum Total Protein (6.3-8.2) g/dL Albumin (3.5-5.0) g/dL Urine Color (Yellow) Urine Appearance (Clear) Urine pH (4.6-8.0) Ur Specific [place] (1.005-1.030) Urine Protein (Negative) Urine Glucose (UA) (Negative) mg/dL Urine Ketones (Negative) Urine Blood (Negative) Urine Nitrite (Negative) Urine Bilirubin (Negative) Urine Urobilinogen (0.2) mg/dL Ur Leukocyte Esterase (Negative) U Hyaline Cast (Auto) (0-2) /LPF Urine Microscopic RBC (0-5) /HPF Urine Microscopic WBC (0-5) /HPF Ur Epithelial Cells (None Seen) /HPF Urine Bacteria (None Seen) /HPF Urine Culture Reflexed (NO) Slides for Path Review 06/09/24 06/09/24 06/09/24 Range/Units 13:59 14:58 Unknown WBC (3.98-10.04) x10^3/uL RBC (3.93-5.22) x10^6/uL Hgb (11.2-15.7) g/dL Hct (34.1-44.9) % MCV (79.4-94.8) fL MCH (25.6-32.2) pg MCHC (32.2-35.5) g/dL RDW (11.7-14.4) % Plt Count (182-369) x10^3/uL MPV (9.4-12.3) fL Gran % (34.0-71.1) % Immature Gran % (Auto) (0.001-0.429) % Nucleat RBC Rel Count (0.00-0.2) % Eos # (Auto) (0.04-0.36) x10^3/uL Immature Gran # (Auto) (0.001-0.031) x10^3u/L Absolute Lymphs (auto) (1.18-3.74) x10^3/uL Absolute Monos (auto) (0.24-0.86) x10^3/uL Absolute Nucleated RBC (0.00-0.012) x10^3u/L Lymphocytes % (19.3-51.7) % Monocytes % (4.7-12.5) % Eosinophils % (0.7-5.8) % Basophils % (0.1-1.2) % Absolute Granulocytes (1.56-6.13) x10^3/uL Basophils # (0.01-0.08) x10^3/uL Sodium (135-145) mmol/L Potassium (3.5-5.1) mmol/L Chloride (98-107) mmol/L Carbon Dioxide (22-30) mmol/L Anion Gap (5-15) MEQ/L BUN (7-17) mg/dL Creatinine (0.52-1.04) mg/dL Estimated GFR ML/MIN Glucose (74-106) mg/dL POC Glucometer 130 H 127 H (74 to 106) mg/dL Hemoglobin A1c 6.08 H (4.5-6.0) % Calcium (8.4-10.2) mg/dL Total Bilirubin (0.2-1.3) mg/dL AST (14-36) U/L ALT (0-35) U/L Alkaline Phosphatase (38-126) U/L Serum Total Protein (6.3-8.2) g/dL Albumin (3.5-5.0) g/dL Urine Color (Yellow) Urine Appearance (Clear) Urine pH (4.6-8.0) Ur Specific [place] (1.005-1.030) Urine Protein (Negative) Urine Glucose (UA) (Negative) mg/dL Urine Ketones (Negative) Urine Blood (Negative) Urine Nitrite (Negative) Urine Bilirubin (Negative) Urine Urobilinogen (0.2) mg/dL Ur Leukocyte Esterase (Negative) U Hyaline Cast (Auto) (0-2) /LPF Urine Microscopic RBC (0-5) /HPF Urine Microscopic WBC (0-5) /HPF Ur Epithelial Cells (None Seen) /HPF Urine Bacteria (None Seen) /HPF Urine Culture Reflexed (NO) Slides for Path Review Micro Results-Entire Visit: Microbiology 06/08/24 19:45 Urine Culture - Preliminary Clean Catch Midstream NO GROWTH TO DATE Accuchecks Date 06/09/24 Date 06/09/24 Date 06/09/24 Date 06/09/24 Date 06/09/24 Date 06/09/24 Date 06/09/24 Date 06/09/24 Date 06/09/24 Date 06/09/24 Date 06/08/24 Date 06/08/24 Time 14:07 Time 09:09 Time 07:20 Time 06:30 Time 05:23 Time 03:30 Time 02:34 Time 01:30 Time 00:28 Time 23:20 Time 22:20 Time 19:25 Discharge Exam General Appearance: no apparent distress, alert Neurologic Exam: alert, oriented x 3, cooperative, 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, normal mood/affect, nml cerebellar function, nml station & gait Eye Exam: PERRL, EOMI, eyes nml inspection Ears, Nose, Throat Exam: normal ENT inspection, TMs normal Neck Exam: normal inspection, non-tender, supple, full range of motion Back Exam: normal range of motion Extremity Exam: normal inspection, normal range of motion Skin Exam: normal color Telemedicine Encounter - Telemedicine Encounter Telemedicine Encounter: "The entirety of this encounter was performed via Telemedicine" This visit was performed using real-time audio and video connection between my location and thepatients locationwith the assistance of a surrogateat the patients location. Written or verbal consent was obtained from the patient/guardian to perform this visit [email or web address]. Any patient questions regarding the telemedicine interaction were answered. Please note that this discharge required greater than 30 minutes to complete. - Discharge Disposition: Home, Self-Care Condition: Stable Prescriptions: Continue Vaugh[place]-3 Fatty Acids [Fish Oil] 300 mg PO DAILY Lorazepam 1 mg [Ativan 1 MG] 0 mg PO UD Cilostazol [Pletal] 100 mg PO BID Metoprolol Tartrate 25 mg [Lopressor 25MG Tab] 75 mg PO BID Lisinopril 20 mg [Zestril 20 MG] 10 mg PO DAILY Felodipine 5 mg [Plendil ER 5 mg] 10 mg PO UD Vitamin B Complex [Super B Complex] 1 cap PO DAILY Simvastatin 40 mg PO DAILY Fluoxetine HCl 20 mg [Prozac 20 MG] 20 mg PO DAILY Amlodipine Besylate 5 mg [Norvasc 5 mg] 5 mg PO DAILY Ascorbic Acid [Vitamin C] 1,000 mg PO DAILY Aspirin 81 gm Chew [Baby Aspirin 81 mg Chew] 81 mg PO DAILY #0 Clopidogrel Bisulfate [PLAVIX Tablet] 75 mg PO DAILY #0 Discontinued Glimepiride [Amaryl] 2 mg PO DAILY Additional Instructions: please talk to your primary provider about alternative medication management of your diabetes with your history of only one meal daily. Please reschedule your appointment with Dr. Frazier to be as soon as possible. Follow up with: BARBER FRAZIER [Primary Care Provider] -
[2024-06-09 16:42] VITALS: BP 182/79; PULSE 66; O2SAT 97
== END 2024-06-09 17:35 | disposition home or self-care (01) ==
LOC: ED 18:18 → MED SURG 06-09 02:25
PROVIDERS: ADMIT Internal Medicine; ATTEND Internal Medicine
DX: E11.649 Type 2 diabetes mellitus with hypoglycemia without coma (principal); I10 Essential (primary) hypertension; I25.10 Atherosclerotic heart disease of native coronary artery without angina pectoris; I25.2 Old myocardial infarction; F17.200 Nicotine dependence, unspecified, uncomplicated; Z79.899 Other long term (current) drug therapy; Z79.01 Long term (current) use of anticoagulants
CPT/HCPCS: 36415; 80053; 81001; 82947; 83036; 85025; 87086; 93005; 99285; G0378; Q3014; A9270-GY